=== PATIENT | male | born 1950 | race Caucasian/White ===

== ENCOUNTER 2019-04-06 20:37 | Inpatient (IN) | payer MEDICARE, MEDICAID ==
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
[2019-04-07 01:23] VITALS: BP 150/73
[2019-04-07] MEDS ORDERED: Maalox 30 mL Cup PO PRN (01:23)
[2019-04-07] MEDS ORDERED: Magnesium Hydroxide (MOM) 30 mL UDC PO PRN ×2 (01:23→08:42)
[2019-04-07] MEDS ORDERED: Albuterol Nebulizer 2.5mg/3mL HHN PRN (01:31)
[2019-04-07] MEDS ORDERED: Non-Formulary Item 1 EA (Omeprazole [Omeprazole] 40 MG) PO SCH (07:30)
[2019-04-07] MEDS ORDERED: INSULIN HUMAN REGULAR 100 UNIT/ML VIAL SUBQ SCH (07:30)
[2019-04-07] MEDS ORDERED: PROTEASE PO SCH (08:00)
[2019-04-07] MEDS ORDERED: LIPASE PO SCH (08:00)
[2019-04-07] MEDS ORDERED: AMYLASE PO SCH (08:00)
[2019-04-07] MEDS ORDERED: Non-Formulary Item 1 EA (Sitagliptin Phosphate [Januvia] 100 MG) PO SCH (09:00)
[2019-04-07] MEDS ORDERED: Apixaban 2.5 MG TABLET PO SCH (09:00)
[2019-04-07] MEDS ORDERED: INSULIN DETEMIR 42 UNIT SQ SCH (09:00)
[2019-04-07] MEDS: Lactulose 10 Gm/15 mL 30mL UDC PO SCH ×2 (09:18→17:47)
[2019-04-07] MEDS: Apixaban 2.5 MG TABLET PO SCH ×2 (09:22→17:47)
[2019-04-07] MEDS: Pantoprazole 40 mg EC Tab PO SCH (09:23)
--- NOTE | 2019-04-07 10:37 | Diagnostic Imaging Report ---
CHEST X-RAY: AP view INDICATION: Abnormal EKG COMPARISON: None FINDINGS: There is abnormal left basal density. Chronic interstitial changes are noted. Heart size is borderline prominent. Atherosclerosis is noted. Degenerative changes of spine are noted. Old left rib fractures are noted. No evidence of pneumothorax. IMPRESSION: Abnormal left basal density. This is of uncertain etiology and may be due to elevation left hemidiaphragm. Pleural fluid or other mass lesions cannot be excluded. Recommend follow-up with CT of the chest. Atherosclerotic vascular disease.
[2019-04-07] MEDS: Insulin Glargine 100 units/ml 10ml Vial SUBQ SCH (10:47)
--- NOTE | 2019-04-07 11:43 | History & Physical ---
ADMIT DATE: 04/06/2019 INTERNAL MEDICINE HISTORY AND PHYSICAL CHIEF COMPLAINT: Agitated behavior, aggressive. HISTORY OF PRESENT ILLNESS: This is a 68-year-old male with history of hypertension, alcohol abuse, cirrhosis, diabetes, hypercholesterolemia, CAD, seizure, legally blind, COPD, admitted from nursing facility secondary to ____. The patient was seen in the ER. The patient is agitated refuse labs and treatment and appeared to be clinically stable and brought into a Geropsych unit. PAST MEDICAL HISTORY: As mentioned in history of present illness. PAST SURGICAL HISTORY: Unable to obtain from the patient. ALLERGIES: No known drug allergies. MEDICATIONS: The patient is on nitroglycerin, Lasix, albuterol, amlodipine, Eliquis, atorvastatin, Colace, clonidine, [place], insulin sliding scale, Lantus, Keppra, ____, losartan, magnesium, omeprazole, [place], Januvia, and Aldactone. FAMILY HISTORY: Noncontributory. SOCIAL HISTORY: The patient lives in a senior living. The patient avid smoker and drinker. REVIEW OF SYSTEMS: This is limited as the patient is not very cognitive. We will try to get more information from nursing staff at ____ as well as from Dr. Rollins, who normally follows the patient. PHYSICAL EXAMINATION: VITAL SIGNS: Blood pressure 136/73, respiration 18, pulse 70 and temperature 98.0. GENERAL: Elderly male, appears chronically ill. NECK: Supple. The patient is covered versus upper extremity. LUNGS: Equal breath sounds with few rhonchi. HEART: Regular rate and rhythm with systolic ejection murmur. ABDOMEN: Soft and globular. Positive bowel sounds. EXTREMITIES: Positive excoriation, atrophy as well as lower extremity, there is a ____. LABORATORY DATA: Pending. ASSESSMENT AND PLAN: Alcohol abuse, cirrhosis, hypertension, chronic pain syndrome, varicose veins, diabetes, elevated ammonia, chronic obstructive pulmonary disease, legally blind, coronary artery disease, and seizure. Continue insulin sliding scale. We will review the patient's medications. Continue anticoagulation. We will continue on fall precaution. Continue on diuretics. We will review the patient's labs once it becomes available. We will follow with you, Dr. Wheeler. [facility]# [id number]
[2019-04-07] MEDS: INSULIN LISPRO SLIDING SCALE 100 UNITS/ML UNIT SUBQ SCH ×3 (12:09→22:32)
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
[2019-04-07 14:29] LABS: URINE SOURCE CLEAN C
[2019-04-07 14:39] LABS: URINE BILIRUBIN NEGATIVE (NEGATIVE); URINE BLOOD SMALL (NEGATIVE); URINE GLUCOSE (UA) 100 mg/dL (NEGATIVE); URINE KETONE NEGATIVE (NEGATIVE); URINE LEUKOCYTE ESTERASE NEGATIVE (NEGATIVE); URINE MICROSCOPIC INDICATED? YES; URINE NITRATE NEGATIVE (NEGATIVE); URINE PH 7.5 (4.6 - 8.0); URINE PROTEIN 100 mg/dL (NEGATIVE); URINE UROBILINOGEN 0.2 E.U./dL (0.2 - 1.0)
[2019-04-07 14:41] LABS: URINE CLARITY CLEAR (CLEAR); URINE COLOR YELLOW; URINE EPITHELIAL CELLS NONE SEEN /lpf (FEW); URINE WBC NONE SEEN /hpf (0-5)
[2019-04-07 14:42] LABS: URINE BACTERIA NONE SEEN /hpf (NONE SEEN)
[2019-04-07] MEDS: Hydrocodone/APAP 10 mg/325 mg Tab PO PRN (22:31)
[2019-04-08] MEDS: Pantoprazole 40 mg EC Tab PO SCH (06:41)
[2019-04-08] MEDS: Lactulose 10 Gm/15 mL 30mL UDC PO SCH ×3 (10:00→16:26)
[2019-04-08] MEDS: Apixaban 2.5 MG TABLET PO SCH ×3 (10:03→16:38)
[2019-04-08] MEDS: INSULIN LISPRO SLIDING SCALE 100 UNITS/ML UNIT SUBQ SCH ×4 (10:11→21:16)
[2019-04-08] MEDS: Insulin Glargine 100 units/ml 10ml Vial SUBQ SCH (10:11)
--- NOTE | 2019-04-08 11:31 | Internal Medicine Prog Note ---
Internal Medicine Subjective - Subjective Patient seen and examined:: with staff, chart reviewed Patient is:: awake, verbal, interactive, agitated Per staff patient has:: no adverse event, no episodes of fall, agitated, combative, noncompliant Internal Medicine Objective - Results Recent Labs: Laboratory Last Values POC Glucose 165 MG/DL (70 - 105) H 04/08/19 06:49 Urine Source CLEAN C 04/07/19 13:15 Urine Color YELLOW 04/07/19 13:15 Urine Clarity CLEAR (CLEAR) 04/07/19 13:15 Urine pH 7.5 (4.6 - 8.0) 04/07/19 13:15 Ur Specific [place] 1.010 (1.005-1.030) 04/07/19 13:15 Urine Protein 100 mg/dL (NEGATIVE) H 04/07/19 13:15 Urine Glucose (UA) 100 mg/dL (NEGATIVE) H 04/07/19 13:15 Urine Ketones NEGATIVE mg/dL (NEGATIVE) 04/07/19 13:15 Urine Blood SMALL (NEGATIVE) H 04/07/19 13:15 Urine Nitrate NEGATIVE (NEGATIVE) 04/07/19 13:15 Urine Bilirubin NEGATIVE (NEGATIVE) 04/07/19 13:15 Urine Urobilinogen 0.2 E.U./dL (0.2 - 1.0) 04/07/19 13:15 Ur Leukocyte Esterase NEGATIVE (NEGATIVE) 04/07/19 13:15 Urine RBC 2-5 /hpf (0-5) H 04/07/19 13:15 Urine WBC NONE SEEN /hpf (0-5) 04/07/19 13:15 Ur Epithelial Cells NONE SEEN /lpf (FEW) 04/07/19 13:15 Urine Bacteria NONE SEEN /hpf (NONE SEEN) 04/07/19 13:15 - Physical Exam Vitals and I&O: Vital Signs Temp 97.8 F 04/08/19 08:00 Pulse 72 04/08/19 08:00 Resp 20 04/08/19 08:00 BP 156/60 04/08/19 08:00 Pulse Ox 100 04/08/19 08:00 Intake & Output 04/07/19 04/08/19 04/08/19 18:59 06:59 18:59 Intake Total 480 Balance 480 Intake: Oral 480 Other: # Voids 2 Active Medications: Current Medications Acetaminophen (Tylenol) 650 mg PO Q6HR PRN PRN Reason: Pain or Fever >101 Stop: 06/06/19 08:41 Acetaminophen/Hydrocodone Bitart ([place] 10 Mg/325 Mg) 1 tab PO Q6HR PRN PRN Reason: Pain (Severe) Stop: 06/06/19 01:30 Last Admin: 04/07/19 22:31 Dose: 1 tab Al Hydrox/Mg Hydrox/Simethicone (Maalox) 30 ml PO Q4HR PRN PRN Reason: GI DISTRESS Stop: 06/06/19 01:22 Albuterol Sulfate (Albuterol 2.5mg/3ml Neb Ud) 2.5 mg HHN Q6HR PRN PRN Reason: COPD Stop: 06/06/19 05:59 Amlodipine Besylate (Norvasc) 10 mg PO DAILY [facility] Stop: 06/06/19 08:59 Last Admin: 04/08/19 10:48 Dose: Not Given Lipase/Protease/Amylase (Zenpep 5,000 U) 2 cap PO TIDWM JARAD Stop: 06/06/19 07:59 Last Admin: 04/08/19 10:47 Dose: Not Given Atorvastatin Calcium (Lipitor) 80 mg PO HS JARAD; Protocol Stop: 06/06/19 20:59 Last Admin: 04/07/19 22:31 Dose: 80 mg Bisacodyl (Dulcolax 10 Mg Supp) 10 mg RC DAILY PRN PRN Reason: Constipation Stop: 06/06/19 01:30 Divalproex Sodium (Depakote Er) 250 mg PO Q12HR JARAD; Protocol Stop: 06/06/19 20:59 Last Admin: 04/08/19 10:48 Dose: Not Given Docusate Sodium (Colace) 100 mg PO BID [facility] Stop: 06/06/19 08:59 Last Admin: 04/08/19 10:48 Dose: Not Given Dorzolamide [facility] ([facility] 1 drop EACH EYE 2100 [facility] Stop: 06/06/19 20:59 Furosemide (Lasix) 40 mg PO DAILY [facility] Stop: 06/06/19 08:59 Last Admin: 04/08/19 10:48 Dose: Not Given Insulin Glargine (Lantus Insulin) 42 units SUBQ QAM [facility] Stop: 06/06/19 08:59 Last Admin: 04/08/19 10:11 Dose: Not Given Insulin Human Lispro (Humalog Insulin Sliding Scale) 0 units SUBQ ACHS [facility]; Protocol Stop: 06/06/19 07:29 Last Admin: 04/08/19 10:11 Dose: Not Given Isosorbide Mononitrate (Imdur) 30 mg PO 1700 [facility] Stop: 06/06/19 16:59 Last Admin: 04/07/19 17:45 Dose: Not Given Lactulose (Cephulac) 20 gm PO BID [facility] Stop: 06/06/19 08:59 Last Admin: 04/08/19 10:49 Dose: Not Given Levetiracetam (Keppra) 500 mg PO BID [facility] Stop: 06/06/19 08:59 Last Admin: 04/08/19 10:49 Dose: Not Given Lorazepam (Ativan) 0.5 mg PO Q4HR PRN; Protocol PRN Reason: Agitation Stop: 05/07/19 01:22 Last Admin: 04/08/19 11:01 Dose: 0.5 mg Losartan Potassium (Cozaar) 50 mg PO DAILY [facility] Stop: 06/06/19 08:59 Last Admin: 04/08/19 10:49 Dose: Not Given Magnesium Hydroxide (Milk Of Magnesia) 30 ml PO DAILY PRN PRN Reason: Constipation Stop: 06/06/19 08:41 Nitroglycerin (Nitrostat) 0.4 mg SL Q15MIN PRN PRN Reason: Chest Pain Stop: 04/09/19 09:01 Pantoprazole Sodium (Protonix) 40 mg PO QDAC [facility] Stop: 06/06/19 07:29 Last Admin: 04/08/19 06:41 Dose: 40 mg Simethicone (Mylicon) 80 mg PO TIDWM [facility] Stop: 06/06/19 11:59 Last Admin: 04/08/19 10:07 Dose: Not Given Sitagliptin Phosphate (Januvia) 100 mg PO DAILY [facility] Stop: 06/06/19 08:59 Last Admin: 04/08/19 10:49 Dose: Not Given Spironolactone (Aldactone) 12.5 mg PO DAILY [facility] Stop: 06/06/19 08:59 Last Admin: 04/08/19 10:50 Dose: Not Given Zolpidem Tartrate (Ambien) 5 mg PO HS PRN PRN Reason: Insomnia Stop: 06/06/19 01:22 Last Admin: 04/07/19 22:31 Dose: 5 mg General: alert HEENT: NC/AT, PERRLA, EOMI Neck: Supple, No JVD Lungs: CTAB Cardiovascular: RRR, Normal S1, Normal S2, without murmur Abdomen: soft, non-tender, non-distended, positive bowel sound Extremities: excoriation Internal Medicine Assmt/Plan - Assessment Assessment: ASSESSMENT AND PLAN: Alcohol abuse, cirrhosis, hypertension, chronic pain syndrome, varicose veins, diabetes, elevated ammonia, chronic obstructive pulmonary disease, legally blind, coronary artery disease, and seizure. - Plan Plan: PLAN: Continue insulin sliding scale. We will review the patient's medications. Continue anticoagulation. We will continue on fall precaution. Continue on diuretics. We will review the patient's labs once it becomes available. We will follow with you, Dr. Wheeler.
[2019-04-08] MEDS: Hydrocodone/APAP 10 mg/325 mg Tab PO PRN ×2 (14:31→20:35)
--- NOTE | 2019-04-08 17:05 | Progress Notes ---
DATE: 04/08/2019 Case was discussed with staff of the patient, reviewed records. The patient continues to be nonverbal and staying to himself, unable to participate in meaningful conversation or make safe plan for self-care, unpredictable, impulsive, very poor insight. No side effects with the medication, no sedation, no nausea, no extrapyramidal symptoms. I will continue to work with the patient in group therapy, milieu therapy and adjust the medication as needed. I initiated him on Depakote yesterday. JOB# [id number]
[2019-04-08] MEDS ORDERED: Albuterol Nebulizer 2.5mg/3mL HHN SCH (19:00)
[2019-04-08] MEDS: Albuterol/Ipratropium Neb 3 ML AERS HHN SCH ×2 (19:52→23:10)
[2019-04-08] MEDS: Budesonide 0.5 Mg/2 mL Ud HHN SCH (19:52)
[2019-04-09] MEDS: Albuterol/Ipratropium Neb 3 ML AERS HHN SCH ×7 (02:29→22:51)
[2019-04-09] MEDS: Hydrocodone/APAP 10 mg/325 mg Tab PO PRN ×3 (03:00→21:28)
[2019-04-09] MEDS: INSULIN LISPRO SLIDING SCALE 100 UNITS/ML UNIT SUBQ SCH ×4 (06:33→22:31)
[2019-04-09] MEDS: Budesonide 0.5 Mg/2 mL Ud HHN SCH ×3 (06:35→18:17)
[2019-04-09] MEDS: Pantoprazole 40 mg EC Tab PO SCH (07:01)
[2019-04-09] MEDS: Lactulose 10 Gm/15 mL 30mL UDC PO SCH ×3 (08:47→17:11)
[2019-04-09] MEDS: Insulin Glargine 100 units/ml 10ml Vial SUBQ SCH (09:28)
--- NOTE | 2019-04-09 13:11 | Internal Medicine Prog Note ---
Internal Medicine Subjective - Subjective Patient seen and examined:: with staff, chart reviewed Patient is:: awake, verbal, interactive, agitated Per staff patient has:: no adverse event, no episodes of fall, agitated, combative, noncompliant Internal Medicine Objective - Results Recent Labs: Laboratory Last Values POC Glucose 158 MG/DL (70 - 105) H 04/09/19 11:07 Urine Source CLEAN C 04/07/19 13:15 Urine Color YELLOW 04/07/19 13:15 Urine Clarity CLEAR (CLEAR) 04/07/19 13:15 Urine pH 7.5 (4.6 - 8.0) 04/07/19 13:15 Ur Specific [place] 1.010 (1.005-1.030) 04/07/19 13:15 Urine Protein 100 mg/dL (NEGATIVE) H 04/07/19 13:15 Urine Glucose (UA) 100 mg/dL (NEGATIVE) H 04/07/19 13:15 Urine Ketones NEGATIVE mg/dL (NEGATIVE) 04/07/19 13:15 Urine Blood SMALL (NEGATIVE) H 04/07/19 13:15 Urine Nitrate NEGATIVE (NEGATIVE) 04/07/19 13:15 Urine Bilirubin NEGATIVE (NEGATIVE) 04/07/19 13:15 Urine Urobilinogen 0.2 E.U./dL (0.2 - 1.0) 04/07/19 13:15 Ur Leukocyte Esterase NEGATIVE (NEGATIVE) 04/07/19 13:15 Urine RBC 2-5 /hpf (0-5) H 04/07/19 13:15 Urine WBC NONE SEEN /hpf (0-5) 04/07/19 13:15 Ur Epithelial Cells NONE SEEN /lpf (FEW) 04/07/19 13:15 Urine Bacteria NONE SEEN /hpf (NONE SEEN) 04/07/19 13:15 - Physical Exam Vitals and I&O: Vital Signs Temp 98.0 F 04/08/19 14:00 Pulse 91 04/09/19 10:35 Resp 20 04/09/19 10:35 BP 130/64 04/09/19 09:04 Pulse Ox 98 04/09/19 10:35 Intake & Output 04/08/19 04/09/19 04/09/19 18:59 06:59 18:59 Intake Total 1000 480 Balance 1000 480 Intake: Oral 1000 480 Other: # Voids 2 # Bowel Movements 1 Active Medications: Current Medications Acetaminophen (Tylenol) 650 mg PO Q6HR PRN PRN Reason: Pain or Fever >101 Stop: 06/06/19 08:41 Acetaminophen/Hydrocodone Bitart ([place] 10 Mg/325 Mg) 1 tab PO Q6HR PRN PRN Reason: Pain (Severe) Stop: 06/06/19 01:30 Last Admin: 04/09/19 09:29 Dose: 1 tab Al Hydrox/Mg Hydrox/Simethicone (Maalox) 30 ml PO Q4HR PRN PRN Reason: GI DISTRESS Stop: 06/06/19 01:22 Albuterol/Ipratropium (Duoneb Neb) 3 ml HHN Q4HRT JARAD Stop: 06/07/19 18:59 Last Admin: 04/09/19 10:30 Dose: 3 ml Albuterol/Ipratropium (Duoneb Neb) 3 ml HHN Q4HRT PRN PRN Reason: Wheezing Stop: 06/07/19 16:44 Amlodipine Besylate (Norvasc) 10 mg PO DAILY [facility] Stop: 06/06/19 08:59 Last Admin: 04/09/19 08:48 Dose: 10 mg Lipase/Protease/Amylase (Zenpep 5,000 U) 2 cap PO TIDWM [facility] Stop: 06/06/19 07:59 Last Admin: 04/09/19 08:48 Dose: 2 cap Atorvastatin Calcium (Lipitor) 80 mg PO HS [facility]ARAD; Protocol Stop: 06/06/19 20:59 Last Admin: 04/08/19 20:35 Dose: 80 mg Azithromycin (Zithromax) 250 mg PO DAILY [facility] Stop: 06/11/19 08:59 Bisacodyl (Dulcolax 10 Mg Supp) 10 mg RC DAILY PRN PRN Reason: Constipation Stop: 06/06/19 01:30 Budesonide (Pulmicort) 0.5 mg HHN BIDRT [facility] Stop: 06/07/19 18:59 Last Admin: 04/09/19 07:17 Dose: 0.5 mg Divalproex Sodium (Depakote Er) 250 mg PO Q12HR [facility]; Protocol Stop: 06/06/19 20:59 Last Admin: 04/09/19 08:59 Dose: 250 mg Docusate Sodium (Colace) 100 mg PO BID [facility] Stop: 06/06/19 08:59 Last Admin: 04/09/19 08:48 Dose: 100 mg Dorzolamide HCl ([facility] 1 drop EACH EYE 2100 [facility] Stop: 06/06/19 20:59 Last Admin: 04/08/19 21:15 Dose: Not Given Furosemide (Lasix) 40 mg PO DAILY [facility] Stop: 06/06/19 08:59 Last Admin: 04/09/19 09:04 Dose: 40 mg Insulin Glargine (Lantus Insulin) 42 units SUBQ QAM [facility] Stop: 06/06/19 08:59 Last Admin: 04/09/19 09:28 Dose: 42 units Insulin Human Lispro (Humalog Insulin Sliding Scale) 0 units SUBQ ACHS [facility]; Protocol Stop: 06/06/19 07:29 Last Admin: 04/09/19 11:48 Dose: 3 units Isosorbide Mononitrate (Imdur) 30 mg PO 1700 [facility] Stop: 06/06/19 16:59 Last Admin: 04/08/19 16:26 Dose: 30 mg Lactulose (Cephulac) 20 gm PO BID [facility] Stop: 06/06/19 08:59 Last Admin: 04/09/19 08:47 Dose: 20 gm Levetiracetam (Keppra) 500 mg PO BID [facility] Stop: 06/06/19 08:59 Last Admin: 04/09/19 08:59 Dose: 500 mg Lorazepam (Ativan) 0.5 mg PO Q4HR PRN; Protocol PRN Reason: Agitation Stop: 05/07/19 01:22 Last Admin: 04/09/19 02:45 Dose: 0.5 mg Losartan Potassium (Cozaar) 50 mg PO DAILY [facility] Stop: 06/06/19 08:59 Last Admin: 04/09/19 09:03 Dose: 50 mg Magnesium Hydroxide (Milk Of Magnesia) 30 ml PO DAILY PRN PRN Reason: Constipation Stop: 06/06/19 08:41 Pantoprazole Sodium (Protonix) 40 mg PO QDAC [facility] Stop: 06/06/19 07:29 Last Admin: 04/09/19 07:01 Dose: Not Given Risperidone (Risperdal) 0.25 mg PO BID [facility]; Protocol Stop: 06/08/19 08:59 Last Admin: 04/09/19 09:04 Dose: 0.25 mg Simethicone (Mylicon) 80 mg PO TIDWM [facility] Stop: 06/06/19 11:59 Last Admin: 04/09/19 08:58 Dose: 80 mg Sitagliptin Phosphate (Januvia) 100 mg PO DAILY [facility] Stop: 06/06/19 08:59 Last Admin: 04/09/19 08:57 Dose: 100 mg Spironolactone (Aldactone) 12.5 mg PO DAILY [facility] Stop: 06/06/19 08:59 Last Admin: 04/09/19 09:00 Dose: 12.5 mg Zolpidem Tartrate (Ambien) 5 mg PO HS PRN PRN Reason: Insomnia Stop: 06/06/19 01:22 Last Admin: 04/07/19 22:31 Dose: 5 mg General: alert HEENT: NC/AT, PERRLA, EOMI Neck: Supple, No JVD Lungs: CTAB Cardiovascular: RRR, Normal S1, Normal S2, without murmur Abdomen: soft, non-tender, non-distended, positive bowel sound Extremities: excoriation Internal Medicine Assmt/Plan - Assessment Assessment: ASSESSMENT AND PLAN: Alcohol abuse, cirrhosis, hypertension, chronic pain syndrome, varicose veins, diabetes, elevated ammonia, chronic obstructive pulmonary disease, legally blind, coronary artery disease, and seizure. - Plan Plan: PLAN: Continue insulin sliding scale. We will review the patient's medications. Continue anticoagulation. We will continue on fall precaution. Continue on diuretics. We will review the patient's labs once it becomes available. We will follow with you, Dr. Wheeler.
[2019-04-09] MEDS: Apixaban 2.5 MG TABLET PO SCH ×2 (13:42→17:10)
--- NOTE | 2019-04-09 23:20 | Progress Notes ---
DATE: SUBJECTIVE: Chart reviewed and the patient interviewed. Also discussed the patient's condition with the staff and reviewed records and labs. The patient is still in irritable and angry mood. The patient also is still restless and is still demanding and suspicious and paranoid. The patient also is still angry. On the other hand, the patient is compliant with taking his medications with no side effects. ASSESSMENT: The patient is still agitated and in irritable mood. TREATMENT PLAN: Continue to monitor his behavior and his condition closely. Also, continue Depakote in a dose of 200 mL and 50 mg twice a day and we will add Risperdal 0.25 mg twice a day and we will continue to follow up closely. [facility]# [id number]
[2019-04-10] MEDS: Albuterol/Ipratropium Neb 3 ML AERS HHN SCH ×6 (03:16→23:12)
[2019-04-10] MEDS: Pantoprazole 40 mg EC Tab PO SCH (06:33)
[2019-04-10] MEDS: INSULIN LISPRO SLIDING SCALE 100 UNITS/ML UNIT SUBQ SCH ×4 (06:33→22:04)
[2019-04-10] MEDS: Budesonide 0.5 Mg/2 mL Ud HHN SCH ×2 (07:09→19:15)
[2019-04-10] MEDS: Lactulose 10 Gm/15 mL 30mL UDC PO SCH ×3 (09:01→17:49)
[2019-04-10] MEDS: Apixaban 2.5 MG TABLET PO SCH ×2 (09:04→17:27)
[2019-04-10] MEDS: Hydrocodone/APAP 10 mg/325 mg Tab PO PRN ×2 (09:41→22:19)
--- NOTE | 2019-04-10 12:16 | Internal Medicine Prog Note ---
Internal Medicine Subjective - Subjective Patient seen and examined:: with staff, chart reviewed Patient is:: awake, verbal, interactive, agitated Per staff patient has:: no adverse event, no episodes of fall, agitated, combative, noncompliant Internal Medicine Objective - Results Recent Labs: Laboratory Last Values POC Glucose 73 MG/DL (70 - 105) 04/10/19 06:09 Urine Source CLEAN C 04/07/19 13:15 Urine Color YELLOW 04/07/19 13:15 Urine Clarity CLEAR (CLEAR) 04/07/19 13:15 Urine pH 7.5 (4.6 - 8.0) 04/07/19 13:15 Ur Specific [place] 1.010 (1.005-1.030) 04/07/19 13:15 Urine Protein 100 mg/dL (NEGATIVE) H 04/07/19 13:15 Urine Glucose (UA) 100 mg/dL (NEGATIVE) H 04/07/19 13:15 Urine Ketones NEGATIVE mg/dL (NEGATIVE) 04/07/19 13:15 Urine Blood SMALL (NEGATIVE) H 04/07/19 13:15 Urine Nitrate NEGATIVE (NEGATIVE) 04/07/19 13:15 Urine Bilirubin NEGATIVE (NEGATIVE) 04/07/19 13:15 Urine Urobilinogen 0.2 E.U./dL (0.2 - 1.0) 04/07/19 13:15 Ur Leukocyte Esterase NEGATIVE (NEGATIVE) 04/07/19 13:15 Urine RBC 2-5 /hpf (0-5) H 04/07/19 13:15 Urine WBC NONE SEEN /hpf (0-5) 04/07/19 13:15 Ur Epithelial Cells NONE SEEN /lpf (FEW) 04/07/19 13:15 Urine Bacteria NONE SEEN /hpf (NONE SEEN) 04/07/19 13:15 - Physical Exam Vitals and I&O: Vital Signs Temp 98.3 F 04/09/19 18:10 Pulse 97 04/10/19 10:48 Resp 22 04/10/19 10:48 BP 108/57 04/10/19 09:04 Pulse Ox 98 04/10/19 10:48 Intake & Output 04/09/19 04/10/19 04/10/19 18:59 06:59 18:59 Intake Total 60 Balance 60 Intake: Oral 60 Other: # Voids 1 # Bowel Movements 0 Active Medications: Current Medications Acetaminophen (Tylenol) 650 mg PO Q6HR PRN PRN Reason: Pain or Fever >101 Stop: 06/06/19 08:41 Acetaminophen/Hydrocodone Bitart ([place] 10 Mg/325 Mg) 1 tab PO Q6HR PRN PRN Reason: Pain (Severe) Stop: 06/06/19 01:30 Last Admin: 04/10/19 09:41 Dose: 1 tab Al Hydrox/Mg Hydrox/Simethicone (Maalox) 30 ml PO Q4HR PRN PRN Reason: GI DISTRESS Stop: 06/06/19 01:22 Albuterol/Ipratropium (Duoneb Neb) 3 ml HHN Q4HRT JARAD Stop: 06/07/19 18:59 Last Admin: 04/10/19 10:48 Dose: 3 ml Albuterol/Ipratropium (Duoneb Neb) 3 ml HHN Q4HRT PRN PRN Reason: Wheezing Stop: 06/07/19 16:44 Amlodipine Besylate (Norvasc) 10 mg PO DAILY [facility] Stop: 06/06/19 08:59 Lipase/Protease/Amylase (Zenpep 5,000 U) 2 cap PO TIDWM JARAD Stop: 06/06/19 07:59 Last Admin: 04/10/19 09:05 Dose: 2 cap Atorvastatin Calcium (Lipitor) 80 mg PO HS JARAD; Protocol Stop: 06/06/19 20:59 Last Admin: 04/09/19 21:27 Dose: 80 mg Azithromycin (Zithromax) 250 mg PO DAILY [facility] Stop: 06/11/19 08:59 Bisacodyl (Dulcolax 10 Mg Supp) 10 mg RC DAILY PRN PRN Reason: Constipation Stop: 06/06/19 01:30 Budesonide (Pulmicort) 0.5 mg HHN BIDRT JARAD Stop: 06/07/19 18:59 Last Admin: 04/10/19 07:09 Dose: 0.5 mg Divalproex Sodium (Depakote Er) 250 mg PO Q12HR JARAD; Protocol Stop: 06/06/19 20:59 Last Admin: 04/10/19 09:03 Dose: 250 mg Docusate Sodium (Colace) 100 mg PO BID [facility] Stop: 06/06/19 08:59 Last Admin: 04/10/19 09:03 Dose: 100 mg Dorzolamide HCl (Trusopt 2% Oph Soln) 1 drop EACH EYE 2100 [facility] Stop: 06/06/19 20:59 Last Admin: 04/09/19 21:27 Dose: Not Given Furosemide (Lasix) 40 mg PO DAILY [facility] Stop: 06/06/19 08:59 Last Admin: 04/10/19 09:04 Dose: 40 mg Insulin Glargine (Lantus Insulin) 42 units SUBQ QAM [facility]AD Stop: 06/06/19 08:59 Last Admin: 04/09/19 09:28 Dose: 42 units Insulin Human Lispro (Humalog Insulin Sliding Scale) 0 units SUBQ ACHS [facility]; Protocol Stop: 06/06/19 07:29 Last Admin: 04/10/19 06:33 Dose: Not Given Isosorbide Mononitrate (Imdur) 30 mg PO 1700 [facility] Stop: 06/06/19 16:59 Last Admin: 04/09/19 17:13 Dose: Not Given Lactulose (Cephulac) 20 gm PO BID [facility] Stop: 06/06/19 08:59 Last Admin: 04/10/19 09:01 Dose: 20 gm Levetiracetam (Keppra) 500 mg PO BID [facility] Stop: 06/06/19 08:59 Last Admin: 04/10/19 09:03 Dose: 500 mg Lorazepam (Ativan) 0.5 mg PO Q4HR PRN; Protocol PRN Reason: Agitation Stop: 05/07/19 01:22 Last Admin: 04/09/19 02:45 Dose: 0.5 mg Losartan Potassium (Cozaar) 50 mg PO DAILY [facility] Stop: 06/06/19 08:59 Last Admin: 04/09/19 09:03 Dose: 50 mg Magnesium Hydroxide (Milk Of Magnesia) 30 ml PO DAILY PRN PRN Reason: Constipation Stop: 06/06/19 08:41 Pantoprazole Sodium (Protonix) 40 mg PO QDAC [facility] Stop: 06/06/19 07:29 Last Admin: 04/10/19 06:33 Dose: 40 mg Risperidone (Risperdal) 0.25 mg PO BID [facility]; Protocol Stop: 06/08/19 08:59 Last Admin: 04/10/19 09:01 Dose: 0.25 mg Simethicone (Mylicon) 80 mg PO TIDWM [facility] Stop: 06/06/19 11:59 Last Admin: 04/10/19 09:03 Dose: 80 mg Sitagliptin Phosphate (Januvia) 100 mg PO DAILY [facility] Stop: 06/06/19 08:59 Last Admin: 04/10/19 09:01 Dose: 100 mg Spironolactone (Aldactone) 12.5 mg PO DAILY [facility] Stop: 06/06/19 08:59 Last Admin: 04/09/19 09:00 Dose: 12.5 mg Zolpidem Tartrate (Ambien) 5 mg PO HS PRN PRN Reason: Insomnia Stop: 06/06/19 01:22 Last Admin: 04/07/19 22:31 Dose: 5 mg General: alert HEENT: NC/AT, PERRLA, EOMI Neck: Supple, No JVD Lungs: CTAB Cardiovascular: RRR, Normal S1, Normal S2, without murmur Abdomen: soft, non-tender, non-distended, positive bowel sound Extremities: excoriation Internal Medicine Assmt/Plan - Assessment Assessment: ASSESSMENT AND PLAN: Alcohol abuse, cirrhosis, hypertension, chronic pain syndrome, varicose veins, diabetes, elevated ammonia, chronic obstructive pulmonary disease, legally blind, coronary artery disease, and seizure. - Plan Plan: PLAN: Continue insulin sliding scale. We will review the patient's medications. Continue anticoagulation. We will continue on fall precaution. Continue on diuretics. We will review the patient's labs once it becomes available. We will follow with you, Dr. Wheeler.
[2019-04-10] MEDS: Insulin Glargine 100 units/ml 10ml Vial SUBQ SCH (15:30)
--- NOTE | 2019-04-10 23:26 | Progress Notes ---
DATE: 04/10/2019 SUBJECTIVE: Chart was reviewed and the patient interviewed. Also discussed the patient's condition with the staff and reviewed records and labs. The patient is still easily agitated and is still demanding and resisting care. The patient also is verbally abusive and aggressive to staff, especially when helping him with his ADLs. The patient also is mumbling with words difficult to understand. Otherwise, the patient continued to take Depakote and Risperdal with no side effects. ASSESSMENT: The patient is still agitated and irritable. TREATMENT PLAN: Continue Depakote 250 mg twice a day and Risperdal 0.25 mg twice a day. Also, continue to work on his aggression and agitation and also on behavioral modification. [facility]# [id number]
[2019-04-11] MEDS: Albuterol/Ipratropium Neb 3 ML AERS HHN SCH ×6 (02:03→22:40)
[2019-04-11] MEDS: Albuterol/Ipratropium Neb 3 ML AERS HHN PRN (05:22)
[2019-04-11] MEDS: INSULIN LISPRO SLIDING SCALE 100 UNITS/ML UNIT SUBQ SCH ×4 (06:42→21:22)
[2019-04-11] MEDS: Pantoprazole 40 mg EC Tab PO SCH (06:46)
[2019-04-11] MEDS: Budesonide 0.5 Mg/2 mL Ud HHN SCH ×2 (07:48→18:33)
[2019-04-11] MEDS: Lactulose 10 Gm/15 mL 30mL UDC PO SCH ×3 (08:51→16:34)
[2019-04-11] MEDS: Apixaban 2.5 MG TABLET PO SCH ×3 (08:52→16:34)
[2019-04-11] MEDS: Insulin Glargine 100 units/ml 10ml Vial SUBQ SCH (09:15)
--- NOTE | 2019-04-11 12:36 | Internal Medicine Prog Note ---
Internal Medicine Subjective - Subjective Patient seen and examined:: with staff, chart reviewed Patient is:: awake, verbal, interactive, agitated Per staff patient has:: no adverse event, no episodes of fall, agitated, combative, noncompliant Internal Medicine Objective - Results Recent Labs: Laboratory Last Values POC Glucose 221 MG/DL (70 - 105) H 04/11/19 08:44 Urine Source CLEAN C 04/07/19 13:15 Urine Color YELLOW 04/07/19 13:15 Urine Clarity CLEAR (CLEAR) 04/07/19 13:15 Urine pH 7.5 (4.6 - 8.0) 04/07/19 13:15 Ur Specific [place] 1.010 (1.005-1.030) 04/07/19 13:15 Urine Protein 100 mg/dL (NEGATIVE) H 04/07/19 13:15 Urine Glucose (UA) 100 mg/dL (NEGATIVE) H 04/07/19 13:15 Urine Ketones NEGATIVE mg/dL (NEGATIVE) 04/07/19 13:15 Urine Blood SMALL (NEGATIVE) H 04/07/19 13:15 Urine Nitrate NEGATIVE (NEGATIVE) 04/07/19 13:15 Urine Bilirubin NEGATIVE (NEGATIVE) 04/07/19 13:15 Urine Urobilinogen 0.2 E.U./dL (0.2 - 1.0) 04/07/19 13:15 Ur Leukocyte Esterase NEGATIVE (NEGATIVE) 04/07/19 13:15 Urine RBC 2-5 /hpf (0-5) H 04/07/19 13:15 Urine WBC NONE SEEN /hpf (0-5) 04/07/19 13:15 Ur Epithelial Cells NONE SEEN /lpf (FEW) 04/07/19 13:15 Urine Bacteria NONE SEEN /hpf (NONE SEEN) 04/07/19 13:15 - Physical Exam Vitals and I&O: Vital Signs Temp 98.1 F 04/10/19 16:56 Pulse 96 04/11/19 10:03 Resp 20 04/11/19 10:03 BP 117/59 04/10/19 17:49 Pulse Ox 97 04/11/19 10:03 Intake & Output 04/10/19 04/11/19 04/11/19 18:59 06:59 18:59 Intake Total 240 Balance 240 Intake: Oral 240 Other: # Voids 2 # Bowel Movements 0 Active Medications: Current Medications Acetaminophen (Tylenol) 650 mg PO Q6HR PRN PRN Reason: Pain or Fever >101 Stop: 06/06/19 08:41 Acetaminophen/Hydrocodone Bitart ([place] 10 Mg/325 Mg) 1 tab PO Q6HR PRN PRN Reason: Pain (Severe) Stop: 06/06/19 01:30 Last Admin: 04/10/19 22:19 Dose: 1 tab Al Hydrox/Mg Hydrox/Simethicone (Maalox) 30 ml PO Q4HR PRN PRN Reason: GI DISTRESS Stop: 06/06/19 01:22 Albuterol/Ipratropium (Duoneb Neb) 3 ml HHN Q4HRT JARAD Stop: 06/07/19 18:59 Last Admin: 04/11/19 10:00 Dose: 3 ml Albuterol/Ipratropium (Duoneb Neb) 3 ml HHN Q4HRT PRN PRN Reason: Wheezing Stop: 06/07/19 16:44 Last Admin: 04/11/19 05:22 Dose: 3 ml Amlodipine Besylate (Norvasc) 10 mg PO DAILY [facility] Stop: 06/06/19 08:59 Last Admin: 04/11/19 12:32 Dose: Not Given Lipase/Protease/Amylase (Zenpep 5,000 U) 2 cap PO TIDWM [facility] Stop: 06/06/19 07:59 Last Admin: 04/11/19 12:33 Dose: Not Given Atorvastatin Calcium (Lipitor) 80 mg PO HS [facility]; Protocol Stop: 06/06/19 20:59 Last Admin: 04/10/19 22:01 Dose: 80 mg Azithromycin (Zithromax) 250 mg PO DAILY [facility] Stop: 06/11/19 08:59 Bisacodyl (Dulcolax 10 Mg Supp) 10 mg RC DAILY PRN PRN Reason: Constipation Stop: 06/06/19 01:30 Budesonide (Pulmicort) 0.5 mg HHN BIDRT [facility] Stop: 06/07/19 18:59 Last Admin: 04/11/19 07:48 Dose: Not Given Divalproex Sodium (Depakote Er) 250 mg PO Q12HR [facility]; Protocol Stop: 06/06/19 20:59 Last Admin: 04/11/19 12:32 Dose: Not Given Docusate Sodium (Colace) 100 mg PO BID [facility] Stop: 06/06/19 08:59 Last Admin: 04/11/19 12:32 Dose: Not Given Dorzolamide HCl [facility]) 1 drop EACH EYE 2100 [facility] Stop: 06/06/19 20:59 Last Admin: 04/10/19 22:03 Dose: Not Given Furosemide (Lasix) 40 mg PO DAILY [facility] Stop: 06/06/19 08:59 Last Admin: 04/11/19 12:32 Dose: Not Given Insulin Glargine (Lantus Insulin) 42 units SUBQ QAM [facility] Stop: 06/06/19 08:59 Last Admin: 04/11/19 09:15 Dose: 42 units Insulin Human Lispro (Humalog Insulin Sliding Scale) 0 units SUBQ ACHS [facility]; Protocol Stop: 06/06/19 07:29 Last Admin: 04/11/19 12:28 Dose: Not Given Isosorbide Mononitrate (Imdur) 30 mg PO 1700 [facility] Stop: 06/06/19 16:59 Last Admin: 04/10/19 17:49 Dose: Not Given Lactulose (Cephulac) 20 gm PO BID [facility] Stop: 06/06/19 08:59 Last Admin: 04/11/19 12:32 Dose: Not Given Levetiracetam (Keppra) 500 mg PO BID [facility] Stop: 06/06/19 08:59 Last Admin: 04/11/19 12:31 Dose: Not Given Lorazepam (Ativan) 0.5 mg PO Q4HR PRN; Protocol PRN Reason: Agitation Stop: 05/07/19 01:22 Last Admin: 04/09/19 02:45 Dose: 0.5 mg Losartan Potassium (Cozaar) 50 mg PO DAILY [facility] Stop: 06/06/19 08:59 Last Admin: 04/11/19 12:31 Dose: Not Given Magnesium Hydroxide (Milk Of Magnesia) 30 ml PO DAILY PRN PRN Reason: Constipation Stop: 06/06/19 08:41 Pantoprazole Sodium (Protonix) 40 mg PO QDAC [facility] Stop: 06/06/19 07:29 Last Admin: 04/11/19 06:46 Dose: Not Given Risperidone (Risperdal) 0.5 mg PO BID [facility]; Protocol Stop: 06/10/19 08:59 Last Admin: 04/11/19 12:31 Dose: Not Given Simethicone (Mylicon) 80 mg PO TIDWM [facility] Stop: 06/06/19 11:59 Last Admin: 04/11/19 12:33 Dose: Not Given Sitagliptin Phosphate (Januvia) 100 mg PO DAILY [facility] Stop: 06/06/19 08:59 Last Admin: 04/11/19 12:31 Dose: Not Given Spironolactone (Aldactone) 12.5 mg PO DAILY [facility] Stop: 06/06/19 08:59 Last Admin: 04/11/19 12:31 Dose: Not Given Zolpidem Tartrate (Ambien) 5 mg PO HS PRN PRN Reason: Insomnia Stop: 06/06/19 01:22 Last Admin: 04/07/19 22:31 Dose: 5 mg General: alert HEENT: NC/AT, PERRLA, EOMI Neck: Supple, No JVD Lungs: CTAB Cardiovascular: RRR, Normal S1, Normal S2, without murmur Abdomen: soft, non-tender, non-distended, positive bowel sound Extremities: excoriation Internal Medicine Assmt/Plan - Assessment Assessment: ASSESSMENT AND PLAN: Alcohol abuse, cirrhosis, hypertension, chronic pain syndrome, varicose veins, diabetes, elevated ammonia, chronic obstructive pulmonary disease, legally blind, coronary artery disease, and seizure. - Plan Plan: PLAN: Continue insulin sliding scale. We will review the patient's medications. Continue anticoagulation. We will continue on fall precaution. Continue on diuretics. We will review the patient's labs once it becomes available. We will follow with you, Dr. Wheeler. Nutritional Asmnt/Malnutr-PDOC - Dietary Evaluation Malnutrition Findings (Please click <Entered> for more info): Nutritional Asmnt/Malnutrition Start: 04/11/19 11: 04 Text: Status: Complete Freq: Protocol: Document 04/11/19 11:04 KRANTHI (Rec: 04/11/19 11:08 [email or web address]) Nutritional Asmnt/Malnutrition Patient General Information Nutritional Screening Moderate Risk Diagnosis Psychosis Pertinent Medical Hx/Surgical Hx DM, cirrhosis, HTN, hypercholesterolemia, CAD, seizure, COPD, legally blind. Subjective Information Pt is a 68-year-old male admitted from detention on 04/06 d/t being a danger to himself and others, pt on a 5150. HT: 57 WT: 121 LB (55 kg) BMI: 18.95 (Normal) GI: WNL, distended, ascitic BM: 04/09 x1 I/O: 240/Not Noted Skin: Area of concern Wound: RT forearm has dry skin tears x3. LT forearm has multiple areas of eccymosis, no dressings needed per wound care orders. Zach: 17 Diet Order: Cardiac, NCS, NEFTALI Estimated Energy Needs: ( Geriatric, CBW) 5108-1055 kcals (25-30 kcals/ kg) 55-66G Pro (1.0-1.2 g/kg) 9796-3773 ml (25-30 ml/kg) Pt is eating 80% of meals Per Meal/Nutrition Activity Record . Dietary is currently providing an estimated 1980 kcals and 115 gm Pro, per Pt PO intake this is providing an estimated 1584 kcals and 91gm Pro to meet 100% kcal and 100 +% Pro needs. Current Diet Order/ Nutrition Support Cardiac, NCS, NEFTALI Pertinent Medications Maalox (PRN), Albuterol (PRN), Lipitor, Dulcolax (PRN), Colace, Lasix, Lantus, INS-SS, Cephulac, Keppra, Cozaar, MOM (PRN), Protonix, Mylicon, Aldactone Pertinent Labs 04/09: POC Glucose 131, 88,73, 212, 198, 221 Nutritional Hx/Data Height 1.7 m Height (Calculated Centimeters) 170.2 Current Weight (lbs) 54.885 kg Weight (Calculated Kilograms) 54.9 Weight (Calculated Grams) 45438.7 [place] Body Weight 148lb (67.27kg) % [place] Body Weight 82 Body Mass Index (BMI) 18.9 Weight Status Approriate GI Symptoms GI Symptoms None Last BM 04/09 x1 Skin Integrity/Comment: Skin: Area of concern Wound: RT forearm has dry skin tears x3. LT forearm has multiple areas of eccymosis, no dressings needed per wound care orders. Zach: 17 Current %PO Good (75-100%) Estimated Nutritional Goals BEE in Kcals: Using Current wt Calories/Kcals/Kg 25-30 Kcals Calculated 7647-9987 Protein: Using Current wt Protein g/k.0-1.2 Protein Calculated 55-66 Fluid: ml 7046-3885 ml (25-30 ml/kg) Nutritional Problem 1. Problem Problem altered nutrition related labs Etiology r/t endocrine dysfunction Signs/Symptoms: aeb POC Glucose (04/09) 131, 88 ,73, 212, 198, 221 Malnutrition Related to Morbid Obesity Malnutrition related to morbid obesity No Intervention/Recommendation Comments 1. Continue with Cardiac, NCS, NEFTALI diet as ordered. 2. Continue with antihyperglycemic medications for glucose control per MD order. Expected Outcomes/Goals Expected Outcomes/Goals 1. PO intake to continue to meet 75% of nutritional needs. 2. Monitor PO intake, wt, nutrition related labs, and skin integrity to trend WNL. 3. F/U as low risk in 7 days, 04/18
--- NOTE | 2019-04-11 20:54 | Progress Notes ---
DATE: SUBJECTIVE: Chart was reviewed and the patient interviewed. Also discussed the patient's condition with the staff and reviewed records and labs. The patient remains in angry and irritable mood. The patient also is still suspicious and is still paranoid. The patient also has severe mood swings. Otherwise, the patient has continued to comply with taking his medications and no side effects of medications. ASSESSMENT: The patient is still anxious and is still in irritable mood. TREATMENT PLAN: We will continue to work on his anger and irritability and continue adjusting psychotropic medications and work on behavioral modification. [facility]# [id number]
[2019-04-12] MEDS: Albuterol/Ipratropium Neb 3 ML AERS HHN SCH ×6 (02:57→23:05)
[2019-04-12] MEDS: INSULIN LISPRO SLIDING SCALE 100 UNITS/ML UNIT SUBQ SCH ×4 (06:45→21:57)
[2019-04-12] MEDS: Pantoprazole 40 mg EC Tab PO SCH (06:57)
[2019-04-12] MEDS: Budesonide 0.5 Mg/2 mL Ud HHN SCH ×2 (07:44→19:07)
[2019-04-12] MEDS: Apixaban 2.5 MG TABLET PO SCH ×2 (09:50→16:44)
[2019-04-12] MEDS: Lactulose 10 Gm/15 mL 30mL UDC PO SCH ×2 (09:51→16:45)
[2019-04-12] MEDS: Insulin Glargine 100 units/ml 10ml Vial SUBQ SCH (10:00)
--- NOTE | 2019-04-12 13:08 | Internal Medicine Prog Note ---
Internal Medicine Subjective - Subjective Patient seen and examined:: with staff, chart reviewed, other (per staff not compliant w meds, diet) Patient is:: awake, verbal, interactive, agitated Per staff patient has:: no adverse event, no episodes of fall, agitated, combative, noncompliant Internal Medicine Objective - Results Recent Labs: Laboratory Last Values POC Glucose 221 MG/DL (70 - 105) H 04/11/19 08:44 Urine Source CLEAN C 04/07/19 13:15 Urine Color YELLOW 04/07/19 13:15 Urine Clarity CLEAR (CLEAR) 04/07/19 13:15 Urine pH 7.5 (4.6 - 8.0) 04/07/19 13:15 Ur Specific [place] 1.010 (1.005-1.030) 04/07/19 13:15 Urine Protein 100 mg/dL (NEGATIVE) H 04/07/19 13:15 Urine Glucose (UA) 100 mg/dL (NEGATIVE) H 04/07/19 13:15 Urine Ketones NEGATIVE mg/dL (NEGATIVE) 04/07/19 13:15 Urine Blood SMALL (NEGATIVE) H 04/07/19 13:15 Urine Nitrate NEGATIVE (NEGATIVE) 04/07/19 13:15 Urine Bilirubin NEGATIVE (NEGATIVE) 04/07/19 13:15 Urine Urobilinogen 0.2 E.U./dL (0.2 - 1.0) 04/07/19 13:15 Ur Leukocyte Esterase NEGATIVE (NEGATIVE) 04/07/19 13:15 Urine RBC 2-5 /hpf (0-5) H 04/07/19 13:15 Urine WBC NONE SEEN /hpf (0-5) 04/07/19 13:15 Ur Epithelial Cells NONE SEEN /lpf (FEW) 04/07/19 13:15 Urine Bacteria NONE SEEN /hpf (NONE SEEN) 04/07/19 13:15 - Physical Exam Vitals and I&O: Vital Signs Temp 98.1 F 04/10/19 16:56 Pulse 103 04/12/19 10:00 Resp 22 04/12/19 11:32 BP 150/88 04/12/19 10:00 Pulse Ox 98 04/12/19 07:45 Intake & Output 04/11/19 04/12/19 04/12/19 18:59 06:59 18:59 Intake Total 0 Balance 0 Intake: Oral 0 Other: # Voids 2 # Bowel Movements 1 Active Medications: Current Medications Acetaminophen (Tylenol) 650 mg PO Q6HR PRN PRN Reason: Pain or Fever >101 Stop: 06/06/19 08:41 Acetaminophen/Hydrocodone Bitart ([place] 10 Mg/325 Mg) 1 tab PO Q6HR PRN PRN Reason: Pain (Severe) Stop: 06/06/19 01:30 Last Admin: 04/10/19 22:19 Dose: 1 tab Al Hydrox/Mg Hydrox/Simethicone (Maalox) 30 ml PO Q4HR PRN PRN Reason: GI DISTRESS Stop: 06/06/19 01:22 Last Admin: 04/11/19 21:08 Dose: 30 ml Albuterol/Ipratropium (Duoneb Neb) 3 ml HHN Q4HRT [facility] Stop: 06/07/19 18:59 Last Admin: 04/12/19 11:28 Dose: Not Given Albuterol/Ipratropium (Duoneb Neb) 3 ml HHN Q4HRT PRN PRN Reason: Wheezing Stop: 06/07/19 16:44 Last Admin: 04/11/19 05:22 Dose: 3 ml Amlodipine Besylate (Norvasc) 10 mg PO DAILY [facility] Stop: 06/06/19 08:59 Last Admin: 04/12/19 10:00 Dose: Not Given Lipase/Protease/Amylase (Zenpep 5,000 U) 2 cap PO TIDWM [facility] Stop: 06/06/19 07:59 Last Admin: 04/12/19 12:34 Dose: Not Given Atorvastatin Calcium (Lipitor) 80 mg PO HS [facility]; Protocol Stop: 06/06/19 20:59 Last Admin: 04/11/19 21:07 Dose: 80 mg Azithromycin (Zithromax) 250 mg PO DAILY [facility] Stop: 06/11/19 08:59 Last Admin: 04/12/19 09:49 Dose: Not Given Bisacodyl (Dulcolax 10 Mg Supp) 10 mg RC DAILY PRN PRN Reason: Constipation Stop: 06/06/19 01:30 Budesonide (Pulmicort) 0.5 mg HHN BIDRT [facility] Stop: 06/07/19 18:59 Last Admin: 04/12/19 07:44 Dose: 0.5 mg Divalproex Sodium (Depakote Er) 250 mg PO Q12HR [facility]; Protocol Stop: 06/06/19 20:59 Last Admin: 04/12/19 09:50 Dose: Not Given Docusate Sodium (Colace) 100 mg PO BID [facility] Stop: 06/06/19 08:59 Last Admin: 04/12/19 09:48 Dose: Not Given Dorzolamide HCl (Trusopt 2% Ophth Soln) 1 drop EACH EYE 2100 [facility] Stop: 06/06/19 20:59 Last Admin: 04/11/19 21:15 Dose: Not Given Furosemide (Lasix) 40 mg PO DAILY [facility] Stop: 06/06/19 08:59 Last Admin: 04/12/19 10:00 Dose: Not Given Insulin Glargine (Lantus Insulin) 42 units SUBQ QAM [facility] Stop: 06/06/19 08:59 Last Admin: 04/12/19 10:00 Dose: Not Given Insulin Human Lispro (Humalog Insulin Sliding Scale) 0 units SUBQ ACHS [facility]; Protocol Stop: 06/06/19 07:29 Last Admin: 04/12/19 11:50 Dose: Not Given Isosorbide Mononitrate (Imdur) 30 mg PO 1700 [facility] Stop: 06/06/19 16:59 Last Admin: 04/11/19 16:34 Dose: Not Given Lactulose (Cephulac) 20 gm PO BID [facility] Stop: 06/06/19 08:59 Last Admin: 04/12/19 09:51 Dose: Not Given Levetiracetam (Keppra) 500 mg PO BID [facility] Stop: 06/06/19 08:59 Last Admin: 04/12/19 09:51 Dose: Not Given Lorazepam (Ativan) 0.5 mg PO Q4HR PRN; Protocol PRN Reason: Agitation Stop: 05/07/19 01:22 Last Admin: 04/09/19 02:45 Dose: 0.5 mg Losartan Potassium (Cozaar) 50 mg PO DAILY [facility] Stop: 06/06/19 08:59 Last Admin: 04/12/19 10:00 Dose: Not Given Magnesium Hydroxide (Milk Of Magnesia) 30 ml PO DAILY PRN PRN Reason: Constipation Stop: 06/06/19 08:41 Pantoprazole Sodium (Protonix) 40 mg PO QDAC [facility] Stop: 06/06/19 07:29 Last Admin: 04/12/19 06:57 Dose: Not Given Risperidone (Risperdal) 0.5 mg PO BID [facility]; Protocol Stop: 06/10/19 08:59 Last Admin: 04/12/19 09:48 Dose: Not Given Simethicone (Mylicon) 80 mg PO TIDWM [facility] Stop: 06/06/19 11:59 Last Admin: 04/12/19 12:34 Dose: Not Given Sitagliptin Phosphate (Januvia) 100 mg PO DAILY [facility] Stop: 06/06/19 08:59 Last Admin: 04/12/19 09:50 Dose: Not Given Spironolactone (Aldactone) 12.5 mg PO DAILY [facility] Stop: 06/06/19 08:59 Last Admin: 04/12/19 10:00 Dose: Not Given Zolpidem Tartrate (Ambien) 5 mg PO HS PRN PRN Reason: Insomnia Stop: 06/06/19 01:22 Last Admin: 04/11/19 21:08 Dose: 5 mg General: alert HEENT: NC/AT, PERRLA, EOMI Neck: Supple, No JVD Lungs: CTAB Cardiovascular: RRR, Normal S1, Normal S2, without murmur Abdomen: soft, non-tender, non-distended, positive bowel sound Extremities: excoriation Internal Medicine Assmt/Plan - Assessment Assessment: ASSESSMENT AND PLAN: Alcohol abuse, cirrhosis, hypertension, chronic pain syndrome, varicose veins, diabetes, elevated ammonia, chronic obstructive pulmonary disease, legally blind, coronary artery disease, and seizure. noncompliance - Plan Plan: PLAN: Continue insulin sliding scale. We will review the patient's medications. Continue anticoagulation. We will continue on fall precaution. Continue on diuretics. We will review the patient's labs once it becomes available. We will follow with you, Dr. Wheeler. check labs ate 60 percent, meds adjusted Nutritional Asmnt/Malnutr-PDOC - Dietary Evaluation Malnutrition Findings (Please click <Entered> for more info): Nutritional Asmnt/Malnutrition Start: 04/11/19 11: 04 Text: Status: Complete Freq: Protocol: Document 04/11/19 11:04 KRANTHI (Rec: 04/11/19 11:08 [email or web address] [email or web address]) Nutritional Asmnt/Malnutrition Patient General Information Nutritional Screening Moderate Risk Diagnosis Psychosis Pertinent Medical Hx/Surgical Hx DM, cirrhosis, HTN, hypercholesterolemia, CAD, seizure, COPD, legally blind. Subjective Information Pt is a 68-year-old male admitted from shelter on 04/06 d/t being a danger to himself and others, pt on a 5150. HT: 57 WT: 121 LB (55 kg) BMI: 18.95 (Normal) GI: WNL, distended, ascitic BM: 04/09 x1 I/O: 240/Not Noted Skin: Area of concern Wound: RT forearm has dry skin tears x3. LT forearm has multiple areas of eccymosis, no dressings needed per wound care orders. Zach: 17 Diet Order: Cardiac, NCS, NEFTALI Estimated Energy Needs: ( Geriatric, CBW) 4541-8391 kcals (25-30 kcals/ kg) 55-66G Pro (1.0-1.2 g/kg) 0789-0962 ml (25-30 ml/kg) Pt is eating 80% of meals Per Meal/Nutrition Activity Record . Dietary is currently providing an estimated 1980 kcals and 115 gm Pro, per Pt PO intake this is providing an estimated 1584 kcals and 91gm Pro to meet 100% kcal and 100 +% Pro needs. Current Diet Order/ Nutrition Support Cardiac, NCS, NEFTALI Pertinent Medications Maalox (PRN), Albuterol (PRN), Lipitor, Dulcolax (PRN), Colace, Lasix, Lantus, INS-SS, Cephulac, Keppra, Cozaar, MOM (PRN), Protonix, Mylicon, Aldactone Pertinent Labs 04/09: POC Glucose 131, 88,73, 212, 198, 221 Nutritional Hx/Data Height 1.7 m Height (Calculated Centimeters) 170.2 Current Weight (lbs) 54.885 kg Weight (Calculated Kilograms) 54.9 Weight (Calculated Grams) 28953.7 [place] Body Weight 148lb (67.27kg) % [place] Body Weight 82 Body Mass Index (BMI) 18.9 Weight Status Approriate GI Symptoms GI Symptoms None Last BM 04/09 x1 Skin Integrity/Comment: Skin: Area of concern Wound: RT forearm has dry skin tears x3. LT forearm has multiple areas of eccymosis, no dressings needed per wound care orders. Zach: 17 Current %PO Good (75-100%) Estimated Nutritional Goals BEE in Kcals: Using Current wt Calories/Kcals/Kg 25-30 Kcals Calculated 2689-6765 Protein: Using Current wt Protein g/k.0-1.2 Protein Calculated 55-66 Fluid: ml 2395-7612 ml (25-30 ml/kg) Nutritional Problem 1. Problem Problem altered nutrition related labs Etiology r/t endocrine dysfunction Signs/Symptoms: aeb POC Glucose (04/09) 131, 88 ,73, 212, 198, 221 Malnutrition Related to Morbid Obesity Malnutrition related to morbid obesity No Intervention/Recommendation Comments 1. Continue with Cardiac, NCS, NEFTALI diet as ordered. 2. Continue with antihyperglycemic medications for glucose control per MD order. Expected Outcomes/Goals Expected Outcomes/Goals 1. PO intake to continue to meet 75% of nutritional needs. 2. Monitor PO intake, wt, nutrition related labs, and skin integrity to trend WNL. 3. F/U as low risk in 7 days, 04/18
--- NOTE | 2019-04-12 14:28 | Diagnostic Imaging Report ---
Portable chest x-ray HISTORY: Shortness of breath The heart is enlarged. Atherosclerotic calcification seen in the aorta. Accentuation of interstitial markings in the left lower lobe related to the volume loss. No acute pulmonary processes. IMPRESSION: 1. No acute abnormalities 2. Elevation of the left hemidiaphragm with findings consistent with chronic changes in the left lower lobe. 3. Generous heart size with atherosclerotic vascular changes
[2019-04-12] MEDS: Hydrocodone/APAP 10 mg/325 mg Tab PO PRN (23:56)
[2019-04-13] MEDS: Albuterol/Ipratropium Neb 3 ML AERS HHN SCH ×6 (03:06→22:34)
[2019-04-13] MEDS: INSULIN LISPRO SLIDING SCALE 100 UNITS/ML UNIT SUBQ SCH ×4 (06:45→20:30)
[2019-04-13] MEDS: Pantoprazole 40 mg EC Tab PO SCH (06:48)
[2019-04-13] MEDS: Budesonide 0.5 Mg/2 mL Ud HHN SCH ×2 (07:15→18:58)
[2019-04-13] MEDS: Lactulose 10 Gm/15 mL 30mL UDC PO SCH ×3 (09:00→17:23)
[2019-04-13] MEDS: Apixaban 2.5 MG TABLET PO SCH ×2 (09:00→16:36)
--- NOTE | 2019-04-13 09:04 | Diagnostic Imaging Report ---
Exam: Portable chest x-ray HISTORY: CVA Findings: Portable initially chest at 1955 reviewed compatible prior study of the same day earlier. There is evidence for elevation left hemidiaphragm. Mild atelectasis versus scarring in left base. Atelectasis is noted right base. Mediastinal structures midline, the heart is not enlarged aortic arch calcified. IMPRESSION: Unchanged compared to prior study of 04/12/2019 Elevated left hemidiaphragm with left basilar atelectasis.
[2019-04-13] MEDS: Insulin Glargine 100 units/ml 10ml Vial SUBQ SCH (09:35)
--- NOTE | 2019-04-13 12:45 | Internal Medicine Prog Note ---
Internal Medicine Subjective - Subjective Patient seen and examined:: with staff, chart reviewed, other (refused lab draw yesterday) Patient is:: awake, verbal, interactive, agitated Per staff patient has:: no adverse event, no episodes of fall, agitated, combative, noncompliant Internal Medicine Objective - Results Recent Labs: Laboratory Last Values POC Glucose 221 MG/DL (70 - 105) H 04/11/19 08:44 Urine Source CLEAN C 04/07/19 13:15 Urine Color YELLOW 04/07/19 13:15 Urine Clarity CLEAR (CLEAR) 04/07/19 13:15 Urine pH 7.5 (4.6 - 8.0) 04/07/19 13:15 Ur Specific [place] 1.010 (1.005-1.030) 04/07/19 13:15 Urine Protein 100 mg/dL (NEGATIVE) H 04/07/19 13:15 Urine Glucose (UA) 100 mg/dL (NEGATIVE) H 04/07/19 13:15 Urine Ketones NEGATIVE mg/dL (NEGATIVE) 04/07/19 13:15 Urine Blood SMALL (NEGATIVE) H 04/07/19 13:15 Urine Nitrate NEGATIVE (NEGATIVE) 04/07/19 13:15 Urine Bilirubin NEGATIVE (NEGATIVE) 04/07/19 13:15 Urine Urobilinogen 0.2 E.U./dL (0.2 - 1.0) 04/07/19 13:15 Ur Leukocyte Esterase NEGATIVE (NEGATIVE) 04/07/19 13:15 Urine RBC 2-5 /hpf (0-5) H 04/07/19 13:15 Urine WBC NONE SEEN /hpf (0-5) 04/07/19 13:15 Ur Epithelial Cells NONE SEEN /lpf (FEW) 04/07/19 13:15 Urine Bacteria NONE SEEN /hpf (NONE SEEN) 04/07/19 13:15 - Physical Exam Vitals and I&O: Vital Signs Temp 97.2 F 04/12/19 20:00 Pulse 93 04/13/19 11:57 Resp 20 04/13/19 11:57 BP 138/63 04/12/19 20:00 Pulse Ox 97 04/13/19 11:57 Intake & Output 04/12/19 04/13/19 04/13/19 18:59 06:59 18:59 Intake Total 240 120 Output Total 100 Balance 140 120 Intake: Oral 240 120 Output: Urine 100 Other: # Voids 2 3 # Bowel Movements 1 Active Medications: Current Medications Acetaminophen (Tylenol) 650 mg PO Q6HR PRN PRN Reason: Pain or Fever >101 Stop: 06/06/19 08:41 Acetaminophen/Hydrocodone Bitart ([place] 10 Mg/325 Mg) 1 tab PO Q6HR PRN PRN Reason: Pain (Severe) Stop: 06/06/19 01:30 Last Admin: 04/12/19 23:56 Dose: 1 tab Al Hydrox/Mg Hydrox/Simethicone (Maalox) 30 ml PO Q4HR PRN PRN Reason: GI DISTRESS Stop: 06/06/19 01:22 Last Admin: 04/11/19 21:08 Dose: 30 ml Albuterol/Ipratropium (Duoneb Neb) 3 ml HHN Q4HRT [facility] Stop: 06/07/19 18:59 Last Admin: 04/13/19 11:59 Dose: Not Given Albuterol/Ipratropium (Duoneb Neb) 3 ml HHN Q4HRT PRN PRN Reason: Wheezing Stop: 06/07/19 16:44 Last Admin: 04/11/19 05:22 Dose: 3 ml Amlodipine Besylate (Norvasc) 10 mg PO DAILY [facility] Stop: 06/06/19 08:59 Last Admin: 04/12/19 10:00 Dose: Not Given Lipase/Protease/Amylase (Zenpep 5,000 U) 2 cap PO TIDWM [facility] Stop: 06/06/19 07:59 Last Admin: 04/13/19 08:00 Dose: 2 cap Bisacodyl (Dulcolax 10 Mg Supp) 10 mg RC DAILY PRN PRN Reason: Constipation Stop: 06/06/19 01:30 Budesonide (Pulmicort) 0.5 mg HHN BIDRT [facility] Stop: 06/07/19 18:59 Last Admin: 04/13/19 07:15 Dose: Not Given Divalproex Sodium (Depakote Er) 250 mg PO Q12HR [facility]; Protocol Stop: 06/06/19 20:59 Last Admin: 04/13/19 09:27 Dose: 250 mg Docusate Sodium (Colace) 100 mg PO BID [facility] Stop: 06/06/19 08:59 Last Admin: 04/13/19 09:27 Dose: 100 mg [facility] drop E[facility]YE 2100 [facility] Stop: 06/06/19 20:59 Last Admin: 04/12/19 21:57 Dose: Not Given Furosemide (Lasix) 40 mg PO DAILY [facility] Stop: 06/06/19 08:59 Last Admin: 04/12/19 10:00 Dose: Not Given Insulin Glargine (Lantus Insulin) 30 units SUBQ QAM [facility] Stop: 06/12/19 08:59 Last Admin: 04/13/19 09:35 Dose: 30 units Insulin Human Lispro (Humalog Insulin Sliding Scale) 0 units SUBQ ACHS [facility]; Protocol Stop: 06/06/19 07:29 Last Admin: 04/13/19 06:45 Dose: 3 units Isosorbide Mononitrate (Imdur) 30 mg PO 1700 [facility] Stop: 06/06/19 16:59 Last Admin: 04/12/19 16:45 Dose: Not Given Lactulose (Cephulac) 20 gm PO BID [facility] Stop: 06/06/19 08:59 Last Admin: 04/12/19 16:45 Dose: Not Given Levetiracetam (Keppra) 500 mg PO BID [facility] Stop: 06/06/19 08:59 Last Admin: 04/13/19 09:27 Dose: 500 mg Lorazepam (Ativan) 0.5 mg PO Q4HR PRN; Protocol PRN Reason: Agitation Stop: 05/07/19 01:22 Last Admin: 04/12/19 21:56 Dose: 0.5 mg Losartan Potassium (Cozaar) 50 mg PO DAILY [facility] Stop: 06/06/19 08:59 Last Admin: 04/12/19 10:00 Dose: Not Given Magnesium Hydroxide (Milk Of Magnesia) 30 ml PO DAILY PRN PRN Reason: Constipation Stop: 06/06/19 08:41 Pantoprazole Sodium (Protonix) 40 mg PO QDAC [facility] Stop: 06/06/19 07:29 Last Admin: 04/13/19 06:48 Dose: 40 mg Risperidone (Risperdal) 0.5 mg PO BID [facility]; Protocol Stop: 06/10/19 08:59 Last Admin: 04/13/19 09:27 Dose: 0.5 mg Simethicone (Mylicon) 80 mg PO TIDWM [facility] Stop: 06/06/19 11:59 Last Admin: 04/13/19 09:24 Dose: 80 mg Sitagliptin Phosphate (Januvia) 100 mg PO DAILY [facility] Stop: 06/06/19 08:59 Last Admin: 04/13/19 09:24 Dose: 100 mg Spironolactone (Aldactone) 12.5 mg PO DAILY [facility] Stop: 06/06/19 08:59 Last Admin: 04/12/19 10:00 Dose: Not Given Zolpidem Tartrate (Ambien) 5 mg PO HS PRN PRN Reason: Insomnia Stop: 06/06/19 01:22 Last Admin: 04/11/19 21:08 Dose: 5 mg General: alert HEENT: NC/AT, PERRLA, EOMI Neck: Supple, No JVD Lungs: CTAB Cardiovascular: RRR, Normal S1, Normal S2, without murmur Abdomen: soft, non-tender, non-distended, positive bowel sound Extremities: excoriation Internal Medicine Assmt/Plan - Assessment Assessment: ASSESSMENT AND PLAN: Alcohol abuse, cirrhosis, hypertension, chronic pain syndrome, varicose veins, diabetes, elevated ammonia, chronic obstructive pulmonary disease, legally blind, coronary artery disease, and seizure. noncompliance - Plan Plan: PLAN: Continue insulin sliding scale. We will review the patient's medications. Continue anticoagulation. We will continue on fall precaution. Continue on diuretics. We will review the patient's labs once it becomes available. We will follow with you, Dr. Wheeler. check labs ate 60 percent, meds adjusted refused labs Nutritional Asmnt/Malnutr-PDOC - Dietary Evaluation Malnutrition Findings (Please click <Entered> for more info): Nutritional Asmnt/Malnutrition Start: 04/11/19 11: 04 Text: Status: Complete Freq: Protocol: Document 04/11/19 11:04 KRANTHI (Rec: 04/11/19 11:08 KRANTHI [email or web address]) Nutritional Asmnt/Malnutrition Patient General Information Nutritional Screening Moderate Risk Diagnosis Psychosis Pertinent Medical Hx/Surgical Hx DM, cirrhosis, HTN, hypercholesterolemia, CAD, seizure, COPD, legally blind. Subjective Information Pt is a 68-year-old male admitted from long-term on 04/06 d/t being a danger to himself and others, pt on a 5150. HT: 57 WT: 121 LB (55 kg) BMI: 18.95 (Normal) GI: WNL, distended, ascitic BM: 04/09 x1 I/O: 240/Not Noted Skin: Area of concern Wound: RT forearm has dry skin tears x3. LT forearm has multiple areas of eccymosis, no dressings needed per wound care orders. Zach: 17 Diet Order: Cardiac, NCS, NEFTALI Estimated Energy Needs: ( Geriatric, CBW) 1909-3963 kcals (25-30 kcals/ kg) 55-66G Pro (1.0-1.2 g/kg) 8567-4058 ml (25-30 ml/kg) Pt is eating 80% of meals Per Meal/Nutrition Activity Record . Dietary is currently providing an estimated 1980 kcals and 115 gm Pro, per Pt PO intake this is providing an estimated 1584 kcals and 91gm Pro to meet 100% kcal and 100 +% Pro needs. Current Diet Order/ Nutrition Support Cardiac, NCS, NEFTALI Pertinent Medications Maalox (PRN), Albuterol (PRN), Lipitor, Dulcolax (PRN), Colace, Lasix, Lantus, INS-SS, Cephulac, Keppra, Cozaar, MOM (PRN), Protonix, Mylicon, Aldactone Pertinent Labs 04/09: POC Glucose 131, 88,73, 212, 198, 221 Nutritional Hx/Data Height 1.7 m Height (Calculated Centimeters) 170.2 Current Weight (lbs) 54.885 kg Weight (Calculated Kilograms) 54.9 Weight (Calculated Grams) 88875.7 [place] Body Weight 148lb (67.27kg) % [place] Body Weight 82 Body Mass Index (BMI) 18.9 Weight Status Approriate GI Symptoms GI Symptoms None Last BM 04/09 x1 Skin Integrity/Comment: Skin: Area of concern Wound: RT forearm has dry skin tears x3. LT forearm has multiple areas of eccymosis, no dressings needed per wound care orders. Zach: 17 Current %PO Good (75-100%) Estimated Nutritional Goals BEE in Kcals: Using Current wt Calories/Kcals/Kg 25-30 Kcals Calculated 7572-8003 Protein: Using Current wt Protein g/k.0-1.2 Protein Calculated 55-66 Fluid: ml 3585-3628 ml (25-30 ml/kg) Nutritional Problem 1. Problem Problem altered nutrition related labs Etiology r/t endocrine dysfunction Signs/Symptoms: aeb POC Glucose (04/09) 131, 88 ,73, 212, 198, 221 Malnutrition Related to Morbid Obesity Malnutrition related to morbid obesity No Intervention/Recommendation Comments 1. Continue with Cardiac, NCS, NEFTALI diet as ordered. 2. Continue with antihyperglycemic medications for glucose control per MD order. Expected Outcomes/Goals Expected Outcomes/Goals 1. PO intake to continue to meet 75% of nutritional needs. 2. Monitor PO intake, wt, nutrition related labs, and skin integrity to trend WNL. 3. F/U as low risk in 7 days, 04/18
[2019-04-13] MEDS: Hydrocodone/APAP 10 mg/325 mg Tab PO PRN (14:30)
--- NOTE | 2019-04-13 22:26 | Progress Notes ---
DATE: SUBJECTIVE: Chart was reviewed and the patient interviewed. Also discussed the patient's condition with the staff and reviewed records and labs. The patient is still a bit anxious and in irritable mood. The patient also is still suspicious and is still paranoid and gets angry and agitated easily. The patient although compliant with taking his medications, yet he refused to get his blood drawn this morning in spite of explaining to him the importance of getting his blood drawn. He is still resisting care sometimes. Otherwise, the patient is compliant with taking his medications with no side effects of medications. ASSESSMENT: The patient is still delusional and paranoid and needs close monitoring. TREATMENT PLAN: Continue to monitor his behavior and his condition closely. Also, continue adjusting psychotropic medications and work on behavioral modification. Also, working on placement issue and discharge plans. [facility]# [id number]
--- NOTE | 2019-04-14 01:34 | Progress Notes ---
DATE: 04/12/2019 SUBJECTIVE: Chart reviewed and the patient interviewed. Also discussed the patient's condition with the staff and reviewed records and labs. The patient is still anxious and is still severely paranoid. The patient also is in irritable and angry mood. The patient also is resisting care and is still ____. He also still seems to be suspicious and seems to be paranoid. Otherwise, the patient is cooperative and compliant with taking his medications and no side effects of Risperdal. ASSESSMENT: The patient is still psychotic and agitated and needs close monitoring. TREATMENT PLAN: Continue to monitor his behavior and his condition closely. Also, continue adjusting psychotropic medications and follow up with discharge plans. [facility]# [id number]
[2019-04-14] MEDS: Albuterol/Ipratropium Neb 3 ML AERS HHN SCH ×6 (02:37→22:42)
[2019-04-14] MEDS: Albuterol/Ipratropium Neb 3 ML AERS HHN PRN (04:14)
[2019-04-14] MEDS: INSULIN LISPRO SLIDING SCALE 100 UNITS/ML UNIT SUBQ SCH ×3 (06:32→17:02)
[2019-04-14] MEDS: Pantoprazole 40 mg EC Tab PO SCH (06:42)
[2019-04-14] MEDS: Budesonide 0.5 Mg/2 mL Ud HHN SCH ×2 (06:52→19:41)
[2019-04-14] MEDS: Apixaban 2.5 MG TABLET PO SCH ×2 (08:47→17:03)
[2019-04-14] MEDS: Insulin Glargine 100 units/ml 10ml Vial SUBQ SCH (08:56)
[2019-04-14] MEDS: Lactulose 10 Gm/15 mL 30mL UDC PO SCH ×2 (09:13→17:03)
--- NOTE | 2019-04-14 12:04 | Internal Medicine Prog Note ---
Internal Medicine Subjective - Subjective Patient seen and examined:: with staff, chart reviewed Patient is:: awake, verbal, interactive, agitated Per staff patient has:: no adverse event, no episodes of fall, agitated, combative, noncompliant Internal Medicine Objective - Results Recent Labs: Laboratory Last Values POC Glucose 221 MG/DL (70 - 105) H 04/11/19 08:44 Urine Source CLEAN C 04/07/19 13:15 Urine Color YELLOW 04/07/19 13:15 Urine Clarity CLEAR (CLEAR) 04/07/19 13:15 Urine pH 7.5 (4.6 - 8.0) 04/07/19 13:15 Ur Specific [place] 1.010 (1.005-1.030) 04/07/19 13:15 Urine Protein 100 mg/dL (NEGATIVE) H 04/07/19 13:15 Urine Glucose (UA) 100 mg/dL (NEGATIVE) H 04/07/19 13:15 Urine Ketones NEGATIVE mg/dL (NEGATIVE) 04/07/19 13:15 Urine Blood SMALL (NEGATIVE) H 04/07/19 13:15 Urine Nitrate NEGATIVE (NEGATIVE) 04/07/19 13:15 Urine Bilirubin NEGATIVE (NEGATIVE) 04/07/19 13:15 Urine Urobilinogen 0.2 E.U./dL (0.2 - 1.0) 04/07/19 13:15 Ur Leukocyte Esterase NEGATIVE (NEGATIVE) 04/07/19 13:15 Urine RBC 2-5 /hpf (0-5) H 04/07/19 13:15 Urine WBC NONE SEEN /hpf (0-5) 04/07/19 13:15 Ur Epithelial Cells NONE SEEN /lpf (FEW) 04/07/19 13:15 Urine Bacteria NONE SEEN /hpf (NONE SEEN) 04/07/19 13:15 - Physical Exam Vitals and I&O: Vital Signs Temp 98.9 F 04/14/19 06:44 Pulse 89 04/14/19 11:06 Resp 22 04/14/19 11:06 BP 105/57 04/14/19 08:49 Pulse Ox 99 04/14/19 11:06 Intake & Output 04/13/19 04/14/19 04/14/19 18:59 06:59 18:59 Intake Total 1200 120 Balance 1200 120 Intake: Oral 1200 120 Other: # Voids 3 # Bowel Movements 1 0 Active Medications: Current Medications Acetaminophen (Tylenol) 650 mg PO Q6HR PRN PRN Reason: Pain or Fever >101 Stop: 06/06/19 08:41 Acetaminophen/Hydrocodone Bitart ([place] 10 Mg/325 Mg) 1 tab PO Q6HR PRN PRN Reason: Pain (Severe) Stop: 06/06/19 01:30 Last Admin: 04/13/19 14:30 Dose: 1 tab Al Hydrox/Mg Hydrox/Simethicone (Maalox) 30 ml PO Q4HR PRN PRN Reason: GI DISTRESS Stop: 06/06/19 01:22 Last Admin: 04/11/19 21:08 Dose: 30 ml Albuterol/Ipratropium (Duoneb Neb) 3 ml HHN Q4HRT [facility] Stop: 06/07/19 18:59 Last Admin: 04/14/19 11:06 Dose: 3 ml Albuterol/Ipratropium (Duoneb Neb) 3 ml HHN Q4HRT PRN PRN Reason: Wheezing Stop: 06/07/19 16:44 Last Admin: 04/14/19 04:14 Dose: 3 ml Amlodipine Besylate (Norvasc) 10 mg PO DAILY [facility] Stop: 06/06/19 08:59 Last Admin: 04/14/19 08:44 Dose: Not Given Lipase/Protease/Amylase (Zenpep 5,000 U) 2 cap PO TIDWM [facility] Stop: 06/06/19 07:59 Last Admin: 04/14/19 08:43 Dose: 2 cap Bisacodyl (Dulcolax 10 Mg Supp) 10 mg RC DAILY PRN PRN Reason: Constipation Stop: 06/06/19 01:30 Budesonide (Pulmicort) 0.5 mg HHN BIDRT [facility] Stop: 06/07/19 18:59 Last Admin: 04/14/19 06:52 Dose: 0.5 mg Divalproex Sodium (Depakote Er) 250 mg PO Q12HR [facility]; Protocol Stop: 06/06/19 20:59 Last Admin: 04/14/19 08:46 Dose: 250 mg Docusate Sodium (Colace) 100 mg PO BID [facility] Stop: 06/06/19 08:59 Last Admin: 04/14/19 08:54 Dose: 100 mg Dorzolamide HCl (Trusopt 2% Oph Soln) 1 drop EACH EYE 2100 [facility] Stop: 06/06/19 20:59 Last Admin: 04/13/19 21:04 Dose: Not Given Furosemide (Lasix) 40 mg PO DAILY [facility] Stop: 06/06/19 08:59 Last Admin: 04/14/19 08:47 Dose: Not Given Insulin Glargine (Lantus Insulin) 30 units SUBQ QAM [facility] Stop: 06/12/19 08:59 Last Admin: 04/14/19 08:56 Dose: 30 units Insulin Human Lispro (Humalog Insulin Sliding Scale) 0 units SUBQ ACHS [facility]; Protocol Stop: 06/06/19 07:29 Last Admin: 04/14/19 11:48 Dose: 3 units Isosorbide Mononitrate (Imdur) 30 mg PO 1700 [facility] Stop: 06/06/19 16:59 Last Admin: 04/13/19 16:37 Dose: 30 mg Lactulose (Cephulac) 20 gm PO BID [facility] Stop: 06/06/19 08:59 Last Admin: 04/14/19 09:13 Dose: Not Given Levetiracetam (Keppra) 500 mg PO BID [facility] Stop: 06/06/19 08:59 Last Admin: 04/14/19 08:47 Dose: 500 mg Lorazepam (Ativan) 0.5 mg PO Q4HR PRN; Protocol PRN Reason: Agitation Stop: 05/07/19 01:22 Last Admin: 04/14/19 04:31 Dose: 0.5 mg Losartan Potassium (Cozaar) 50 mg PO DAILY [facility] Stop: 06/06/19 08:59 Last Admin: 04/14/19 08:46 Dose: Not Given Magnesium Hydroxide (Milk Of Magnesia) 30 ml PO DAILY PRN PRN Reason: Constipation Stop: 06/06/19 08:41 Pantoprazole Sodium (Protonix) 40 mg PO QDAC [facility] Stop: 06/06/19 07:29 Last Admin: 04/14/19 06:42 Dose: 40 mg Risperidone (Risperdal) 0.5 mg PO BID [facility]; Protocol Stop: 06/10/19 08:59 Last Admin: 04/14/19 08:45 Dose: 0.5 mg Simethicone (Mylicon) 80 mg PO TIDWM [facility] Stop: 06/06/19 11:59 Last Admin: 04/14/19 08:44 Dose: 80 mg Sitagliptin Phosphate (Januvia) 100 mg PO DAILY [facility] Stop: 06/06/19 08:59 Last Admin: 04/14/19 08:45 Dose: 100 mg Spironolactone (Aldactone) 12.5 mg PO DAILY [facility] Stop: 06/06/19 08:59 Last Admin: 04/14/19 08:49 Dose: Not Given Zolpidem Tartrate (Ambien) 5 mg PO HS PRN PRN Reason: Insomnia Stop: 06/06/19 01:22 Last Admin: 04/11/19 21:08 Dose: 5 mg General: alert HEENT: NC/AT, PERRLA, EOMI Neck: Supple, No JVD Lungs: CTAB Cardiovascular: RRR, Normal S1, Normal S2, without murmur Abdomen: soft, non-tender, non-distended, positive bowel sound Extremities: excoriation Internal Medicine Assmt/Plan - Assessment Assessment: ASSESSMENT AND PLAN: Alcohol abuse, cirrhosis, hypertension, chronic pain syndrome, varicose veins, diabetes, elevated ammonia, chronic obstructive pulmonary disease, legally blind, coronary artery disease, and seizure. noncompliance - Plan Plan: PLAN: Continue insulin sliding scale. We will review the patient's medications. Continue anticoagulation. We will continue on fall precaution. Continue on diuretics. We will review the patient's labs once it becomes available. We will follow with you, Dr. Wheeler. check labs ate 60 percent, meds adjusted refused labs Nutritional Asmnt/Malnutr-PDOC - Dietary Evaluation Malnutrition Findings (Please click <Entered> for more info): Nutritional Asmnt/Malnutrition Start: 04/11/19 11: 04 Text: Status: Complete Freq: Protocol: Document 04/11/19 11:04 KRANTHI (Rec: 04/11/19 11:08 [email or web address] [email or web address]) Nutritional Asmnt/Malnutrition Patient General Information Nutritional Screening Moderate Risk Diagnosis Psychosis Pertinent Medical Hx/Surgical Hx DM, cirrhosis, HTN, hypercholesterolemia, CAD, seizure, COPD, legally blind. Subjective Information Pt is a 68-year-old male admitted from [facility] d/t being a danger to himself and others, pt on a 5150. HT: 57 WT: 121 LB (55 kg) BMI: 18.95 (Normal) GI: WNL, distended, ascitic BM: 04/09 x1 I/O: 240/Not Noted Skin: Area of concern Wound: RT forearm has dry skin tears x3. LT forearm has multiple areas of eccymosis, no dressings needed per wound care orders. Zach: 17 Diet Order: Cardiac, NCS, NEFTALI Estimated Energy Needs: ( Geriatric, CBW) 7753-4373 kcals (25-30 kcals/ kg) 55-66G Pro (1.0-1.2 g/kg) 7974-5386 ml (25-30 ml/kg) Pt is eating 80% of meals Per Meal/Nutrition Activity Record . Dietary is currently providing an estimated 1980 kcals and 115 gm Pro, per Pt PO intake this is providing an estimated 1584 kcals and 91gm Pro to meet 100% kcal and 100 +% Pro needs. Current Diet Order/ Nutrition Support Cardiac, NCS, NEFTALI Pertinent Medications Maalox (PRN), Albuterol (PRN), Lipitor, Dulcolax (PRN), Colace, Lasix, Lantus, INS-SS, Cephulac, Keppra, Cozaar, MOM (PRN), Protonix, Mylicon, Aldactone Pertinent Labs 04/09: POC Glucose 131, 88,73, 212, 198, 221 Nutritional Hx/Data Height 1.7 m Height (Calculated Centimeters) 170.2 Current Weight (lbs) 54.885 kg Weight (Calculated Kilograms) 54.9 Weight (Calculated Grams) 83719.7 [place] Body Weight 148lb (67.27kg) % [place] Body Weight 82 Body Mass Index (BMI) 18.9 Weight Status Approriate GI Symptoms GI Symptoms None Last BM 04/09 x1 Skin Integrity/Comment: Skin: Area of concern Wound: RT forearm has dry skin tears x3. LT forearm has multiple areas of eccymosis, no dressings needed per wound care orders. Zach: 17 Current %PO Good (75-100%) Estimated Nutritional Goals BEE in Kcals: Using Current wt Calories/Kcals/Kg 25-30 Kcals Calculated 4250-9697 Protein: Using Current wt Protein g/k.0-1.2 Protein Calculated 55-66 Fluid: ml 5743-9879 ml (25-30 ml/kg) Nutritional Problem 1. Problem Problem altered nutrition related labs Etiology r/t endocrine dysfunction Signs/Symptoms: aeb POC Glucose (04/09) 131, 88 ,73, 212, 198, 221 Malnutrition Related to Morbid Obesity Malnutrition related to morbid obesity No Intervention/Recommendation Comments 1. Continue with Cardiac, NCS, NEFTALI diet as ordered. 2. Continue with antihyperglycemic medications for glucose control per MD order. Expected Outcomes/Goals Expected Outcomes/Goals 1. PO intake to continue to meet 75% of nutritional needs. 2. Monitor PO intake, wt, nutrition related labs, and skin integrity to trend WNL. 3. F/U as low risk in 7 days, 04/18
[2019-04-15] MEDS: Albuterol/Ipratropium Neb 3 ML AERS HHN SCH ×8 (02:30→22:17)
[2019-04-15] MEDS: INSULIN LISPRO SLIDING SCALE 100 UNITS/ML UNIT SUBQ SCH ×5 (06:45→21:52)
[2019-04-15] MEDS: Pantoprazole 40 mg EC Tab PO SCH (06:47)
[2019-04-15] MEDS: Budesonide 0.5 Mg/2 mL Ud HHN SCH ×2 (07:44→18:29)
[2019-04-15] MEDS: Lactulose 10 Gm/15 mL 30mL UDC PO SCH ×2 (09:16→17:11)
[2019-04-15] MEDS: Apixaban 2.5 MG TABLET PO SCH ×2 (09:19→17:11)
[2019-04-15] MEDS: Hydrocodone/APAP 10 mg/325 mg Tab PO PRN ×2 (09:27→21:17)
[2019-04-15] MEDS: Insulin Glargine 100 units/ml 10ml Vial SUBQ SCH (11:15)
--- NOTE | 2019-04-15 13:22 | Internal Medicine Prog Note ---
Internal Medicine Subjective - Subjective Patient seen and examined:: with staff, chart reviewed Patient is:: awake, verbal, interactive, agitated Per staff patient has:: no adverse event, no episodes of fall, agitated, combative, noncompliant Internal Medicine Objective - Results Recent Labs: Laboratory Last Values POC Glucose 221 MG/DL (70 - 105) H 04/11/19 08:44 Urine Source CLEAN C 04/07/19 13:15 Urine Color YELLOW 04/07/19 13:15 Urine Clarity CLEAR (CLEAR) 04/07/19 13:15 Urine pH 7.5 (4.6 - 8.0) 04/07/19 13:15 Ur Specific [place] 1.010 (1.005-1.030) 04/07/19 13:15 Urine Protein 100 mg/dL (NEGATIVE) H 04/07/19 13:15 Urine Glucose (UA) 100 mg/dL (NEGATIVE) H 04/07/19 13:15 Urine Ketones NEGATIVE mg/dL (NEGATIVE) 04/07/19 13:15 Urine Blood SMALL (NEGATIVE) H 04/07/19 13:15 Urine Nitrate NEGATIVE (NEGATIVE) 04/07/19 13:15 Urine Bilirubin NEGATIVE (NEGATIVE) 04/07/19 13:15 Urine Urobilinogen 0.2 E.U./dL (0.2 - 1.0) 04/07/19 13:15 Ur Leukocyte Esterase NEGATIVE (NEGATIVE) 04/07/19 13:15 Urine RBC 2-5 /hpf (0-5) H 04/07/19 13:15 Urine WBC NONE SEEN /hpf (0-5) 04/07/19 13:15 Ur Epithelial Cells NONE SEEN /lpf (FEW) 04/07/19 13:15 Urine Bacteria NONE SEEN /hpf (NONE SEEN) 04/07/19 13:15 - Physical Exam Vitals and I&O: Vital Signs Temp 98.8 F 04/14/19 14:00 Pulse 96 04/15/19 11:08 Resp 30 04/15/19 11:08 BP 140/68 04/14/19 17:04 Pulse Ox 97 04/15/19 11:08 Intake & Output 04/14/19 04/15/19 04/15/19 18:59 06:59 18:59 Intake Total 1300 Balance 1300 Intake: Oral 1300 Other: # Voids 4 # Bowel Movements 0 Active Medications: Current Medications Acetaminophen (Tylenol) 650 mg PO Q6HR PRN PRN Reason: Pain or Fever >101 Stop: 06/06/19 08:41 Acetaminophen/Hydrocodone Bitart ([place] 10 Mg/325 Mg) 1 tab PO Q6HR PRN PRN Reason: Pain (Severe) Stop: 06/06/19 01:30 Last Admin: 04/15/19 09:27 Dose: 1 tab Al Hydrox/Mg Hydrox/Simethicone (Maalox) 30 ml PO Q4HR PRN PRN Reason: GI DISTRESS Stop: 06/06/19 01:22 Last Admin: 04/11/19 21:08 Dose: 30 ml Albuterol/Ipratropium (Duoneb Neb) 3 ml HHN Q4HRT [facility] Stop: 06/07/19 18:59 Last Admin: 04/15/19 11:06 Dose: 3 ml Albuterol/Ipratropium (Duoneb Neb) 3 ml HHN Q4HRT PRN PRN Reason: Wheezing Stop: 06/07/19 16:44 Last Admin: 04/14/19 04:14 Dose: 3 ml Amlodipine Besylate (Norvasc) 10 mg PO DAILY [facility] Stop: 06/06/19 08:59 Last Admin: 04/15/19 11:10 Dose: Not Given Lipase/Protease/Amylase (Zenpep 5,000 U) 2 cap PO TIDWM [facility] Stop: 06/06/19 07:59 Last Admin: 04/15/19 09:16 Dose: 2 cap Bisacodyl (Dulcolax 10 Mg Supp) 10 mg RC DAILY PRN PRN Reason: Constipation Stop: 06/06/19 01:30 Budesonide (Pulmicort) 0.5 mg HHN BIDRT [facility] Stop: 06/07/19 18:59 Last Admin: 04/15/19 07:44 Dose: 0.5 mg Divalproex Sodium (Depakote Er) 250 mg PO Q12HR [facility]; Protocol Stop: 06/06/19 20:59 Last Admin: 04/15/19 09:19 Dose: 250 mg Docusate Sodium (Colace) 100 mg PO BID [facility] Stop: 06/06/19 08:59 Last Admin: 04/15/19 09:19 Dose: 100 mg [facility] 1 drop E[facility]YE 2100 [facility] Stop: 06/06/19 20:59 Last Admin: 04/14/19 20:00 Dose: Not Given Furosemide (Lasix) 40 mg PO DAILY [facility] Stop: 06/06/19 08:59 Last Admin: 04/15/19 11:12 Dose: Not Given Insulin Glargine (Lantus Insulin) 30 units SUBQ QAM [facility] Stop: 06/12/19 08:59 Last Admin: 04/15/19 11:15 Dose: 30 units Insulin Human Lispro (Humalog Insulin Sliding Scale) 0 units SUBQ ACHS [facility]; Protocol Stop: 06/06/19 07:29 Last Admin: 04/15/19 11:46 Dose: 5 units Isosorbide Mononitrate (Imdur) 30 mg PO 1700 [facility] Stop: 06/06/19 16:59 Last Admin: 04/14/19 17:04 Dose: 30 mg Lactulose (Cephulac) 20 gm PO BID [facility] Stop: 06/06/19 08:59 Last Admin: 04/15/19 09:16 Dose: 20 gm Levetiracetam (Keppra) 500 mg PO BID [facility] Stop: 06/06/19 08:59 Last Admin: 04/15/19 09:19 Dose: 500 mg Lorazepam (Ativan) 0.5 mg PO Q4HR PRN; Protocol PRN Reason: Agitation Stop: 05/07/19 01:22 Last Admin: 04/14/19 14:59 Dose: 0.5 mg Losartan Potassium (Cozaar) 50 mg PO DAILY [facility] Stop: 06/06/19 08:59 Last Admin: 04/15/19 11:12 Dose: Not Given Magnesium Hydroxide (Milk Of Magnesia) 30 ml PO DAILY PRN PRN Reason: Constipation Stop: 06/06/19 08:41 Pantoprazole Sodium (Protonix) 40 mg PO QDAC [facility] Stop: 06/06/19 07:29 Last Admin: 04/15/19 06:47 Dose: 40 mg Risperidone (Risperdal) 0.75 mg PO BID [facility]; Protocol Stop: 06/14/19 08:59 Last Admin: 04/15/19 09:20 Dose: 0.75 mg Simethicone (Mylicon) 80 mg PO TIDWM [facility] Stop: 06/06/19 11:59 Last Admin: 04/15/19 09:17 Dose: 80 mg Sitagliptin Phosphate (Januvia) 100 mg PO DAILY [facility] Stop: 06/06/19 08:59 Last Admin: 04/15/19 09:18 Dose: 100 mg Spironolactone (Aldactone) 12.5 mg PO DAILY [facility] Stop: 06/06/19 08:59 Last Admin: 04/15/19 11:12 Dose: Not Given Zolpidem Tartrate (Ambien) 5 mg PO HS PRN PRN Reason: Insomnia Stop: 06/06/19 01:22 Last Admin: 04/11/19 21:08 Dose: 5 mg General: alert HEENT: NC/AT, PERRLA, EOMI Neck: Supple, No JVD Lungs: CTAB Cardiovascular: RRR, Normal S1, Normal S2, without murmur Abdomen: soft, non-tender, non-distended, positive bowel sound Extremities: excoriation Internal Medicine Assmt/Plan - Assessment Assessment: ASSESSMENT AND PLAN: Alcohol abuse, cirrhosis, hypertension, chronic pain syndrome, varicose veins, diabetes, elevated ammonia, chronic obstructive pulmonary disease, legally blind, coronary artery disease, and seizure. noncompliance - Plan Plan: PLAN: Continue insulin sliding scale. We will review the patient's medications. Continue anticoagulation. We will continue on fall precaution. Continue on diuretics. We will review the patient's labs once it becomes available. We will follow with you, Dr. Wheeler. check labs ate 60 percent, meds adjusted refused labs Nutritional Asmnt/Malnutr-PDOC - Dietary Evaluation Malnutrition Findings (Please click <Entered> for more info): Nutritional Asmnt/Malnutrition Start: 04/11/19 11: 04 Text: Status: Complete Freq: Protocol: Document 04/11/19 11:04 KRANTHI (Rec: 04/11/19 11:08 KRANTHI [email or web address]) Nutritional Asmnt/Malnutrition Patient General Information Nutritional Screening Moderate Risk Diagnosis Psychosis Pertinent Medical Hx/Surgical Hx DM, cirrhosis, HTN, hypercholesterolemia, CAD, seizure, COPD, legally blind. Subjective Information Pt is a 68-year-old male admitted from assisted on 04/06 d/t being a danger to himself and others, pt on a 5150. HT: 57 WT: 121 LB (55 kg) BMI: 18.95 (Normal) GI: WNL, distended, ascitic BM: 04/09 x1 I/O: 240/Not Noted Skin: Area of concern Wound: RT forearm has dry skin tears x3. LT forearm has multiple areas of eccymosis, no dressings needed per wound care orders. Zach: 17 Diet Order: Cardiac, NCS, NEFTALI Estimated Energy Needs: ( Geriatric, CBW) 4838-8320 kcals (25-30 kcals/ kg) 55-66G Pro (1.0-1.2 g/kg) 6348-9078 ml (25-30 ml/kg) Pt is eating 80% of meals Per Meal/Nutrition Activity Record . Dietary is currently providing an estimated 1980 kcals and 115 gm Pro, per Pt PO intake this is providing an estimated 1584 kcals and 91gm Pro to meet 100% kcal and 100 +% Pro needs. Current Diet Order/ Nutrition Support Cardiac, NCS, NEFTALI Pertinent Medications Maalox (PRN), Albuterol (PRN), Lipitor, Dulcolax (PRN), Colace, Lasix, Lantus, INS-SS, Cephulac, Keppra, Cozaar, MOM (PRN), Protonix, Mylicon, Aldactone Pertinent Labs 04/09: POC Glucose 131, 88,73, 212, 198, 221 Nutritional Hx/Data Height 1.7 m Height (Calculated Centimeters) 170.2 Current Weight (lbs) 54.885 kg Weight (Calculated Kilograms) 54.9 Weight (Calculated Grams) 18509.7 [place] Body Weight 148lb (67.27kg) % [place] Body Weight 82 Body Mass Index (BMI) 18.9 Weight Status Approriate GI Symptoms GI Symptoms None Last BM 04/09 x1 Skin Integrity/Comment: Skin: Area of concern Wound: RT forearm has dry skin tears x3. LT forearm has multiple areas of eccymosis, no dressings needed per wound care orders. Zach: 17 Current %PO Good (75-100%) Estimated Nutritional Goals BEE in Kcals: Using Current wt Calories/Kcals/Kg 25-30 Kcals Calculated 2320-8932 Protein: Using Current wt Protein g/k.0-1.2 Protein Calculated 55-66 Fluid: ml 0269-2098 ml (25-30 ml/kg) Nutritional Problem 1. Problem Problem altered nutrition related labs Etiology r/t endocrine dysfunction Signs/Symptoms: aeb POC Glucose (04/09) 131, 88 ,73, 212, 198, 221 Malnutrition Related to Morbid Obesity Malnutrition related to morbid obesity No Intervention/Recommendation Comments 1. Continue with Cardiac, NCS, NEFTALI diet as ordered. 2. Continue with antihyperglycemic medications for glucose control per MD order. Expected Outcomes/Goals Expected Outcomes/Goals 1. PO intake to continue to meet 75% of nutritional needs. 2. Monitor PO intake, wt, nutrition related labs, and skin integrity to trend WNL. 3. F/U as low risk in 7 days, 04/18
--- NOTE | 2019-04-15 14:51 | Progress Notes ---
DATE: SUBJECTIVE: Chart was reviewed and the patient interviewed. Also discussed the patient's condition with the staff and reviewed the records. The patient is still angry and in irritable mood. The patient also is anxious and is restless. The patient also is having difficulty expressing himself and expressing his needs ____. He also is angry in mood and he still is agitated. Otherwise, the patient is compliant with taking his medications with no side effects. ASSESSMENT: The patient is still psychotic and agitated. TREATMENT PLAN: Continue to monitor behavior and condition closely. Also, continue adjusting psychotropic medications and work on behavioral modification. [facility]# [id number]
--- NOTE | 2019-04-15 20:32 | Progress Notes ---
DATE: SUBJECTIVE: Chart was reviewed and the patient interviewed. Also discussed the patient's condition with the staff and reviewed records and labs. The patient is still easily agitated and is still in irritable mood. The patient also is demanding. Also, is confused and he is trying to get off the bed, exposing himself to dangerous situations. At the same time, the patient is compliant with medications. ASSESSMENT: The patient is still depressed and seems to be paranoid. TREATMENT PLAN: Continue to monitor behavior and condition closely. Also, increase Risperdal to 0.75 mg twice a day and we will continue to follow up closely. JOB# [id number]
[2019-04-16] MEDS: Albuterol/Ipratropium Neb 3 ML AERS HHN SCH ×5 (02:24→18:28)
[2019-04-16] MEDS: Budesonide 0.5 Mg/2 mL Ud HHN SCH ×2 (06:33→18:28)
[2019-04-16] MEDS: INSULIN LISPRO SLIDING SCALE 100 UNITS/ML UNIT SUBQ SCH ×3 (06:39→16:58)
[2019-04-16] MEDS: Pantoprazole 40 mg EC Tab PO SCH (06:44)
[2019-04-16] MEDS: Hydrocodone/APAP 10 mg/325 mg Tab PO PRN (06:45)
[2019-04-16] MEDS: Apixaban 2.5 MG TABLET PO SCH ×2 (09:07→16:02)
[2019-04-16] MEDS: Lactulose 10 Gm/15 mL 30mL UDC PO SCH ×2 (09:07→16:02)
[2019-04-16] MEDS: Insulin Glargine 100 units/ml 10ml Vial SUBQ SCH (09:38)
--- NOTE | 2019-04-16 13:59 | Internal Medicine Prog Note ---
Internal Medicine Subjective - Subjective Service Date: 04/16/19 Patient is:: awake, verbal, interactive, agitated Per staff patient has:: no adverse event, no episodes of fall, agitated, combative, noncompliant Internal Medicine Objective - Results Recent Labs: Laboratory Last Values POC Glucose 221 MG/DL (70 - 105) H 04/11/19 08:44 Urine Source CLEAN C 04/07/19 13:15 Urine Color YELLOW 04/07/19 13:15 Urine Clarity CLEAR (CLEAR) 04/07/19 13:15 Urine pH 7.5 (4.6 - 8.0) 04/07/19 13:15 Ur Specific [place] 1.010 (1.005-1.030) 04/07/19 13:15 Urine Protein 100 mg/dL (NEGATIVE) H 04/07/19 13:15 Urine Glucose (UA) 100 mg/dL (NEGATIVE) H 04/07/19 13:15 Urine Ketones NEGATIVE mg/dL (NEGATIVE) 04/07/19 13:15 Urine Blood SMALL (NEGATIVE) H 04/07/19 13:15 Urine Nitrate NEGATIVE (NEGATIVE) 04/07/19 13:15 Urine Bilirubin NEGATIVE (NEGATIVE) 04/07/19 13:15 Urine Urobilinogen 0.2 E.U./dL (0.2 - 1.0) 04/07/19 13:15 Ur Leukocyte Esterase NEGATIVE (NEGATIVE) 04/07/19 13:15 Urine RBC 2-5 /hpf (0-5) H 04/07/19 13:15 Urine WBC NONE SEEN /hpf (0-5) 04/07/19 13:15 Ur Epithelial Cells NONE SEEN /lpf (FEW) 04/07/19 13:15 Urine Bacteria NONE SEEN /hpf (NONE SEEN) 04/07/19 13:15 - Physical Exam Vitals and I&O: Vital Signs Temp 97.8 F 04/16/19 13:43 Pulse 82 04/16/19 13:43 Resp 19 04/16/19 13:43 BP 128/71 04/16/19 13:43 Pulse Ox 97 04/16/19 13:43 Intake & Output 04/15/19 04/16/19 04/16/19 18:59 06:59 18:59 Intake Total 900 120 Balance 900 120 Intake: Oral 900 120 Other: # Voids 4 3 # Bowel Movements 0 0 Active Medications: Current Medications Acetaminophen (Tylenol) 650 mg PO Q6HR PRN PRN Reason: Pain or Fever >101 Stop: 06/06/19 08:41 Acetaminophen/Hydrocodone Bitart ([place] 10 Mg/325 Mg) 1 tab PO Q6HR PRN PRN Reason: Pain (Severe) Stop: 06/06/19 01:30 Last Admin: 04/16/19 06:45 Dose: 1 tab Al Hydrox/Mg Hydrox/Simethicone (Maalox) 30 ml PO Q4HR PRN PRN Reason: GI DISTRESS Stop: 06/06/19 01:22 Last Admin: 04/11/19 21:08 Dose: 30 ml Albuterol/Ipratropium (Duoneb Neb) 3 ml HHN Q4HRT [facility] Stop: 06/07/19 18:59 Last Admin: 04/16/19 10:14 Dose: 3 ml Albuterol/Ipratropium (Duoneb Neb) 3 ml HHN Q4HRT PRN PRN Reason: Wheezing Stop: 06/07/19 16:44 Last Admin: 04/14/19 04:14 Dose: 3 ml Amlodipine Besylate (Norvasc) 10 mg PO DAILY [facility] Stop: 06/06/19 08:59 Last Admin: 04/16/19 09:14 Dose: Not Given Lipase/Protease/Amylase (Zenpep 5,000 U) 2 cap PO TIDWM [facility] Stop: 06/06/19 07:59 Last Admin: 04/16/19 12:06 Dose: 2 cap Bisacodyl (Dulcolax 10 Mg Supp) 10 mg RC DAILY PRN PRN Reason: Constipation Stop: 06/06/19 01:30 Budesonide (Pulmicort) 0.5 mg HHN BIDRT [facility] Stop: 06/07/19 18:59 Last Admin: 04/16/19 06:33 Dose: 0.5 mg Divalproex Sodium (Depakote Er) 250 mg PO Q12HR [facility]; Protocol Stop: 06/06/19 20:59 Last Admin: 04/16/19 09:08 Dose: Not Given Docusate Sodium (Colace) 100 mg PO BID [facility] Stop: 06/06/19 08:59 Last Admin: 04/16/19 09:09 Dose: Not Given Dorzolamide HCl ([facility] 1 drop EACH EYE 2100 [facility] Stop: 06/06/19 20:59 Last Admin: 04/15/19 21:51 Dose: Not Given Furosemide (Lasix) 40 mg PO DAILY [facility] Stop: 06/06/19 08:59 Last Admin: 04/16/19 09:15 Dose: Not Given Insulin Glargine (Lantus Insulin) 30 units SUBQ QAM [facility] Stop: 06/12/19 08:59 Last Admin: 04/16/19 09:38 Dose: Not Given Insulin Human Lispro (Humalog Insulin Sliding Scale) 0 units SUBQ ACHS [facility]; Protocol Stop: 06/06/19 07:29 Last Admin: 04/16/19 12:07 Dose: 3 units Isosorbide Mononitrate (Imdur) 30 mg PO 1700 [facility] Stop: 06/06/19 16:59 Last Admin: 04/15/19 17:12 Dose: 30 mg Lactulose (Cephulac) 20 gm PO BID [facility] Stop: 06/06/19 08:59 Last Admin: 04/16/19 09:07 Dose: Not Given Levetiracetam (Keppra) 500 mg PO BID [facility] Stop: 06/06/19 08:59 Last Admin: 04/16/19 09:10 Dose: Not Given Lorazepam (Ativan) 0.5 mg PO Q4HR PRN; Protocol PRN Reason: Agitation Stop: 05/07/19 01:22 Last Admin: 04/16/19 06:30 Dose: 0.5 mg Losartan Potassium (Cozaar) 50 mg PO DAILY [facility] Stop: 06/06/19 08:59 Last Admin: 04/16/19 09:18 Dose: Not Given Magnesium Hydroxide (Milk Of Magnesia) 30 ml PO DAILY PRN PRN Reason: Constipation Stop: 06/06/19 08:41 Pantoprazole Sodium (Protonix) 40 mg PO QDAC [facility] Stop: 06/06/19 07:29 Last Admin: 04/16/19 06:44 Dose: 40 mg Risperidone (Risperdal) 0.75 mg PO BID [facility]; Protocol Stop: 06/14/19 08:59 Last Admin: 04/16/19 09:11 Dose: Not Given Simethicone (Mylicon) 80 mg PO TIDWM [facility] Stop: 06/06/19 11:59 Last Admin: 04/16/19 12:06 Dose: 80 mg Sitagliptin Phosphate (Januvia) 100 mg PO DAILY [facility] Stop: 06/06/19 08:59 Last Admin: 04/16/19 09:09 Dose: Not Given Spironolactone (Aldactone) 12.5 mg PO DAILY [facility] Stop: 06/06/19 08:59 Last Admin: 04/16/19 09:16 Dose: Not Given Zolpidem Tartrate (Ambien) 5 mg PO HS PRN PRN Reason: Insomnia Stop: 06/06/19 01:22 Last Admin: 04/11/19 21:08 Dose: 5 mg General: alert HEENT: NC/AT, PERRLA, EOMI Neck: Supple, No JVD Lungs: CTAB Cardiovascular: RRR, Normal S1, Normal S2, without murmur Abdomen: soft, non-tender, non-distended, positive bowel sound Extremities: excoriation Internal Medicine Assmt/Plan - Assessment Assessment: Alcohol abuse, cirrhosis, hypertension, chronic pain syndrome, varicose veins, diabetes, elevated ammonia, chronic obstructive pulmonary disease, legally blind, coronary artery disease, and seizure. noncompliance - Plan Plan: fall precautions cont meds continue current plan of care Nutritional Asmnt/Malnutr-PDOC - Dietary Evaluation Malnutrition Findings (Please click <Entered> for more info): Nutritional Asmnt/Malnutrition Start: 04/11/19 11: 04 Text: Status: Complete Freq: Protocol: Document 04/11/19 11:04 KRANTHI (Rec: 04/11/19 11:08 KRANTHI [email or web address]) Nutritional Asmnt/Malnutrition Patient General Information Nutritional Screening Moderate Risk Diagnosis Psychosis Pertinent Medical Hx/Surgical Hx DM, cirrhosis, HTN, hypercholesterolemia, CAD, seizure, COPD, legally blind. Subjective Information Pt is a 68-year-old male admitted from snf on 04/06 d/t being a danger to himself and others, pt on a 5150. HT: 57 WT: 121 LB (55 kg) BMI: 18.95 (Normal) GI: WNL, distended, ascitic BM: 04/09 x1 I/O: 240/Not Noted Skin: Area of concern Wound: RT forearm has dry skin tears x3. LT forearm has multiple areas of eccymosis, no dressings needed per wound care orders. Zach: 17 Diet Order: Cardiac, NCS, NEFTALI Estimated Energy Needs: ( Geriatric, CBW) 4422-0051 kcals (25-30 kcals/ kg) 55-66G Pro (1.0-1.2 g/kg) 1798-1308 ml (25-30 ml/kg) Pt is eating 80% of meals Per Meal/Nutrition Activity Record . Dietary is currently providing an estimated 1980 kcals and 115 gm Pro, per Pt PO intake this is providing an estimated 1584 kcals and 91gm Pro to meet 100% kcal and 100 +% Pro needs. Current Diet Order/ Nutrition Support Cardiac, NCS, NEFTALI Pertinent Medications Maalox (PRN), Albuterol (PRN), Lipitor, Dulcolax (PRN), Colace, Lasix, Lantus, INS-SS, Cephulac, Keppra, Cozaar, MOM (PRN), Protonix, Mylicon, Aldactone Pertinent Labs 04/09: POC Glucose 131, 88,73, 212, 198, 221 Nutritional Hx/Data Height 5 ft 7 in Height (Calculated Centimeters) 170.2 Current Weight (lbs) 121 lb Weight (Calculated Kilograms) 54.9 Weight (Calculated Grams) 19688.7 [place] Body Weight 148lb (67.27kg) % [place] Body Weight 82 Body Mass Index (BMI) 18.9 Weight Status Approriate GI Symptoms GI Symptoms None Last BM 04/09 x1 Skin Integrity/Comment: Skin: Area of concern Wound: RT forearm has dry skin tears x3. LT forearm has multiple areas of eccymosis, no dressings needed per wound care orders. Zach: 17 Current %PO Good (75-100%) Estimated Nutritional Goals BEE in Kcals: Using Current wt Calories/Kcals/Kg 25-30 Kcals Calculated 7732-2913 Protein: Using Current wt Protein g/k.0-1.2 Protein Calculated 55-66 Fluid: ml 3592-1125 ml (25-30 ml/kg) Nutritional Problem 1. Problem Problem altered nutrition related labs Etiology r/t endocrine dysfunction Signs/Symptoms: aeb POC Glucose (04/09) 131, 88 ,73, 212, 198, 221 Malnutrition Related to Morbid Obesity Malnutrition related to morbid obesity No Intervention/Recommendation Comments 1. Continue with Cardiac, NCS, NEFTALI diet as ordered. 2. Continue with antihyperglycemic medications for glucose control per MD order. Expected Outcomes/Goals Expected Outcomes/Goals 1. PO intake to continue to meet 75% of nutritional needs. 2. Monitor PO intake, wt, nutrition related labs, and skin integrity to trend WNL. 3. F/U as low risk in 7 days, 04/18
[2019-04-16] MEDS: Albuterol/Ipratropium Neb 3 ML AERS HHN PRN (16:19)
[2019-04-16 19:00] LABS: BASOPHILE ABSOLUTE 0.1 Th/cumm (0-0.2); EOSINOPHILE ABSOLUTE 0.1 Th/cmm (0.1-0.4); HEMOGLOBIN 8.5 gm/dL (12-16); LYMPHOCYTE ABSOLUTE 0.8 Th/cmm (1.5-3.0); MONOCYTE ABSOLUTE 0.6 Th/cmm (0.3-1.0)
[2019-04-16 19:02] LABS: ALLEN TEST YES; PaCO2 48.4 mmHg (35.0-45.0); PaO2 228.6 mmHg (80.0-100.0); sO2c 99.4 % (92.0-100.0)
[2019-04-16 19:17] LABS: % BASOPHILS 1.9 % (0.0-2.0); % LYMPHOCYTES 22.4 % (20.0-50.0); % MONOCYTES 16.6 % (2.0-10.0); HEMATOCRIT 24.7 % (41.0-60); MEAN CELL VOLUME 78.5 fl (80-99); MEAN CORPUSCULAR HEMOGLOBIN 26.9 pg (27.0-31.0); MEAN CORPUSCULAR HGB CONC 34.2 pg (28.0-36.0); NEUTROPHILE ABSOLUTE 1.8 Th/cmm (1.8-8.0); PLATELET COUNT 107 Th/cmm (150-400); RED BLOOD COUNT 3.15 Mil/cmm (3.80-5.80); RED CELL DISTRIBUTION WIDTH 18.9 % (11.5-20.0)
[2019-04-16 19:19] LABS: ALB/GLOB RATIO 0.9 (1.0-1.8); ANION GAP 12.3 (7.0-16.0); BILIRUBIN,TOTAL 0.3 mg/dL (0.3-1.0); BUN - UREA NITROGEN 19 mg/dL (7-25); CALCIUM SERUM 8.5 mg/dL (8.6-10.3); CARBON DIOXIDE 24.8 mEq/L (21.0-31.0); CHLORIDE 104 mEq/L (98-107); CREATININE - SERUM 0.8 mg/dL (0.7-1.3); GFR AFRICAN-AMERICAN > 60.0 ml/min (>90); GFR NON AFRICAN-AMERICAN > 60.0 ml/min; GLUCOSE 161 mg/dL (70-105); POTASSIUM SERUM 4.1 mEq/L (3.5-5.1); SGOT 25 U/L (13-39); SGPT/ALT 29 U/L (7-52); SODIUM SERUM 137 mEq/L (136-145); TOTAL PROTEIN,SERUM 6.2 gm/dL (6.0-8.3)
[2019-04-16 19:22] LABS: WHITE BLOOD COUNT 3.4 Th/cmm (4.8-10.8)
[2019-04-16 20:16] LABS: ALKALINE PHOSPHATASE 164 U/L (34-104)
[2019-04-16 20:34] LABS: BAND NEUTROPHILE 1 % (0-10); BASOPHIL 0 % (0-3); EOSINOPHIL 1 % (0-5); LYMPHOCYTE 22 % (20-50); MONOCYTE 16 % (2-10); NEUTROPHILS 59 % (40-80)
[2019-04-17 08:06] LABS: A1C 7.8 % (4.8-5.6)
--- NOTE | 2019-04-17 09:49 | Diagnostic Imaging Report ---
CHEST X-RAY: AP view INDICATION: CVA COMPARISON: Chest x-ray 04/12/2019 FINDINGS: Developing left lung infiltrates are seen greatest along left upper lobe. There is elevation of the left hemidiaphragm. Bibasal pleural thickening is noted. Mild cardiomegaly is noted atherosclerosis. IMPRESSION: Developing left lung infiltrates greatest along the left upper lobe. There may be additional right lower lung zone infiltrates. Follow-up recommended. Mild cardiomegaly with atherosclerosis.
--- NOTE | 2019-04-17 11:17 | Discharge Summary ---
DATE OF DISCHARGE: 04/16/2019 PATIENT'S AGE: 68. SEX: Male. PHYSICIAN: Dr. Wheeler. FINAL DIAGNOSIS: PRIMARY DIAGNOSIS: Depressive mood disorder, unspecified. REASON FOR HOSPITALIZATION: The patient was admitted to the hospital from [facility] because of agitation and irritability and the patient was not able to follow staff directions and was paranoid. HOSPITAL COURSE: The patient continued to be anxious and in irritable mood. The patient also was unable to follow directions. The patient started on Risperdal and the dose adjusted to 0.75 mg twice a day. The patient was calmer and less irritable and more cooperative, but at the same time, the patient was having some shortness of breath and Dr. Rollins transferred the patient to medical floor. Physical exam of the patient showed severe liver cirrhosis and also chronic kidney disease. The patient's medical conditions deteriorated and the patient was transferred to the medical floor. EXPECTED OUTCOME AFTER DISCHARGE: Depends on hospital course in the medical floor. [facility]# [id number]
== END 2019-04-16 21:15 | disposition short-term general hospital (02) | DRG 881 ==
LOC: ER 20:37 → GERO2 23:30 → GERO 04-11 19:07
PROVIDERS: ADMIT Psychiatry & Neurology Psychiatry; ATTEND Psychiatry & Neurology Psychiatry
DX: F32.9 Major depressive disorder, single episode, unspecified (principal); E72.20 Disorder of urea cycle metabolism, unspecified; F29 Unspecified psychosis not due to a substance or known physiological condition; F03.90 Unspecified dementia, unspecified severity, without behavioral disturbance, psychotic disturbance, mood disturbance, and anxiety; F10.10 Alcohol abuse, uncomplicated; J44.9 Chronic obstructive pulmonary disease, unspecified; G89.4 Chronic pain syndrome; I10 Essential (primary) hypertension; H54.8 Legal blindness, as defined in USA; I25.10 Atherosclerotic heart disease of native coronary artery without angina pectoris; E11.9 Type 2 diabetes mellitus without complications; E78.00 Pure hypercholesterolemia, unspecified; K70.31 Alcoholic cirrhosis of liver with ascites; I83.90 Asymptomatic varicose veins of unspecified lower extremity; G40.909 Epilepsy, unspecified, not intractable, without status epilepticus; E78.5 Hyperlipidemia, unspecified; Z87.891 Personal history of nicotine dependence
CPT/HCPCS: 36415-UA; 71045-TC; 80053-TC; 80164-TC; 81001-TC; 82803-TC; 82948-90; 83036-90; 83605; 83880-TC; 84443-TC; 84484-TC; 85007-TC; 85025-TC; 93005; 94640; 94760; J1815; J7613; Z7610

== ENCOUNTER 2019-04-16 21:15 | Inpatient (IN) | payer MEDICARE, OTHER ==
[2019-04-16] MEDS ORDERED: Albuterol/Ipratropium Neb 3 ML AERS HHN PRN (22:08)
[2019-04-16] MEDS ORDERED: Albuterol/Ipratropium Neb 3 ML AERS HHN SCH (23:00)
[2019-04-17] MEDS: NITROGLYCERIN OINT 2% 1 INCH PACKET TP SCH ×4 (00:10→17:08)
[2019-04-17 00:11] VITALS: BP 143/67
[2019-04-17] MEDS: Albuterol/Ipratropium Neb 3 ML AERS HHN SCH ×4 (01:31→18:46)
[2019-04-17] MEDS ORDERED: Piperacillin Sodium/Tazobact 3.375 gm Vial IV ONE (04:35)
[2019-04-17 08:12] LABS: EOSINOPHILE ABSOLUTE 0.1 Th/cmm (0.1-0.4); HEMATOCRIT 24.4 % (41.0-60); HEMOGLOBIN 8.1 gm/dL (12-16); LYMPHOCYTE ABSOLUTE 0.5 Th/cmm (1.5-3.0); MEAN CORPUSCULAR HEMOGLOBIN 25.8 pg (27.0-31.0); MEAN CORPUSCULAR HGB CONC 33.1 pg (28.0-36.0); MONOCYTE ABSOLUTE 0.6 Th/cmm (0.3-1.0); NEUTROPHILE ABSOLUTE 2.2 Th/cmm (1.8-8.0); PLATELET COUNT 104 Th/cmm (150-400); RED BLOOD COUNT 3.13 Mil/cmm (3.80-5.80); RED CELL DISTRIBUTION WIDTH 19.2 % (11.5-20.0)
[2019-04-17 08:29] LABS: WHITE BLOOD COUNT 3.4 Th/cmm (4.8-10.8)
[2019-04-17 08:33] LABS: ALB/GLOB RATIO 0.9 (1.0-1.8); ALBUMIN 2.9 gm/dL (4.2-5.5); ALKALINE PHOSPHATASE 148 U/L (34-104); ANION GAP 11.9 (7.0-16.0); BILIRUBIN,TOTAL 0.4 mg/dL (0.3-1.0); BUN - UREA NITROGEN 19 mg/dL (7-25); CALCIUM SERUM 8.7 mg/dL (8.6-10.3); CARBON DIOXIDE 25.5 mEq/L (21.0-31.0); CHLORIDE 104 mEq/L (98-107); CREATININE - SERUM 0.7 mg/dL (0.7-1.3); GFR AFRICAN-AMERICAN > 60.0 ml/min (>90); GFR NON AFRICAN-AMERICAN > 60.0 ml/min; GLUCOSE 141 mg/dL (70-105); POTASSIUM SERUM 4.4 mEq/L (3.5-5.1); SGOT 21 U/L (13-39); SGPT/ALT 26 U/L (7-52); SODIUM SERUM 137 mEq/L (136-145); TOTAL PROTEIN,SERUM 6.1 gm/dL (6.0-8.3)
[2019-04-17] MEDS: Aspirin 81mg Chewable Tab PO SCH ×2 (08:52→08:56)
[2019-04-17 09:04] LABS: BAND NEUTROPHILE 0 % (0-10); BASOPHIL 0 % (0-3); EOSINOPHIL 1 % (0-5); LYMPHOCYTE 16 % (20-50); MONOCYTE 18 % (2-10); NEUTROPHILS 65 % (40-80)
[2019-04-17] MEDS ORDERED: Dextrose 50% 50 mL Abboject IVP PRN (09:19)
[2019-04-17] MEDS ORDERED: GLUCAGON HCl 1 MG KIT IM PRN (09:19)
--- NOTE | 2019-04-17 09:40 | History & Physical ---
ADMIT DATE: 04/16/2019 PATIENT IDENTIFICATION: A 68-year-old male. CHIEF COMPLAINT: Transferred to medical side for management of respiratory distress. HISTORY OF PRESENT ILLNESS: A 68-year-old [place] male, resident of half-way, admitted initially at [facility] for psychiatric treatment where the patient followed by Dr. Moyer who was covering for me and he was getting his treatment there and noted that the patient was having significant respiratory distress. The patient was also noted to have some orthopnea as well. I did receive a call and I did advise to have workup done, which did reveal the patient had a respiratory acidosis, elevated BNP along with slightly elevated troponin. The patient was advised to be admitted in the hospital for further treatment. PAST MEDICAL HISTORY: Remarkable for: 1. Chronic obstructive pulmonary disease. 2. Liver cirrhosis. 3. History of psychotic disorder. 4. Dementia. 5. Degenerative joint disease. 6. Congestive heart failure. 7. History of splenectomy. 8. Diabetes mellitus, seizure disorder along with glaucoma. MEDICATIONS: He was taking at home, medications have been reviewed and reconciled. ALLERGIES: The patient is not allergic to medications. SOCIAL HISTORY: The patient resides in a half-way. The patient has no history of smoking cigarette, alcohol, or drug use. PHYSICAL EXAMINATION: GENERAL: The patient is alert, awake, lying in the bed without any acute distress. VITAL SIGNS: Temperature 98.8, pulse is 100, respiratory rate 20, blood pressure 136/80. HEENT: Normocephalic, atraumatic. Extraocular muscles are intact. Tongue more pink in color. Oropharynx congested. Oral mucosa congested. NECK: Supple, no JVD, no hepatojugular reflex. No lymphadenopathy, thyromegaly or carotid bruit. HEART: Both heart sounds are regular. Positive for S4. CHEST AND LUNGS: Equal in expansion with diffuse expiratory wheezing throughout. ABDOMEN: Soft, no guarding, no rigidity. Bowel sounds present. No palpable mass. EXTREMITIES: +1 trace edema noted. No calf tenderness. AVAILABLE DIAGNOSTIC DATA: Has been reviewed. CLINICAL IMPRESSION: 1. Acute respiratory distress. 2. Elevated BNP with history of diabetes, hypertension, elevated troponin, needs to rule out for congestive heart failure. 3. Ruled out aspiration pneumonia. 4. Diabetes. 5. Hypertension. 6. Hyperlipidemia. 7. Cirrhosis of liver. 8. Seizure disorder. 9. Psychotic disorder. 10. Dementia. PLAN: 1. Admit this patient to telemetry unit. 2. Oxygen. 3. Nebulizer treatment. 4. IV antibiotic. 5. IV Lasix. 6. Cardiology consult. 7. Pulmonary consult. 8. Psych consult. 9. Appropriate home medicine reconciliation. 10. General nursing care. 11. Ruled out for acute myocardial infarction by obtaining 3 sets of cardiac enzymes and EKG. 12. Follow up lab. 13. Swallow evaluation. 14. CT scan of the chest. 15. Follow information security consultant's recommendation. 16. Care plan reviewed and discussed with staff. JOB# [id number]
--- NOTE | 2019-04-17 10:03 | Diagnostic Imaging Report ---
CT Chest without IV contrast HISTORY: Shortness of breath COMPARISON: Chest x-ray on 04/16/2019. Technique: Axial images were obtained from the base of the neck to the upper abdomen without IV contrast. Reconstructions were made. Total DLP 217, CTD I 5.5 Findings: Assessment of the mediastinum is limited due to lack of IV contrast. No mediastinal lymphadenopathy. The ascending aorta measures up to 3.9 cm. Heavy atherosclerosis is noted with coronary artery calcifications. Minimal pericardial calcifications are seen. Heart size is normal. No pericardial effusion. Evaluation of the lungs demonstrates diffuse left lung infiltrates including small nodular infiltrates. Additional few faint right lung infiltrates are also noted. There is also indeterminate nodularity and infiltrate measuring 9 mm along the minor fissure. Additional smaller nodular infiltrates are seen throughout the lungs. No pleural effusions. There is marked elevation of left hemidiaphragm. Left basal pleural thickening is noted. The upper abdomen demonstrates small amount of free fluid and cirrhotic appearing liver. Gallstones are noted. Heavy atherosclerosis is noted. Degenerative changes of the spine are noted. IMPRESSION: Diffuse left lung infiltrates including multifocal nodular infiltrates. Additional less pronounced right lung infiltrates are noted with nodular infiltrates also noted, largest along the right minor fissure region measuring 9 mm. Findings favor infectious process. Neoplastic processes less likely, however, clinical correlation and follow-up recommended to ensure resolution Severe atherosclerosis with ectatic aorta measuring up to 3.9 cm. Minimal pericardial calcification noted. Elevation of the left hemidiaphragm. Cirrhotic appearing liver. Gallstones. Small amount of ascites noted primarily on the perihepatic region.
[2019-04-17] MEDS: Albuterol/Ipratropium Neb 3 ML AERS HHN PRN (11:19)
[2019-04-17] MEDS: Apixaban 2.5 MG TABLET PO SCH ×2 (11:59→16:46)
[2019-04-17] MEDS: INSULIN LISPRO SLIDING SCALE 100 UNITS/ML UNIT SUBQ SCH ×3 (12:34→20:57)
[2019-04-17] MEDS: Pantoprazole 40 mg EC Tab PO SCH (16:48)
[2019-04-17] MEDS: methylPREDNISolone SS 40 mg Vial IV SCH (17:07)
[2019-04-17] MEDS: Budesonide 0.5 Mg/2 mL Ud HHN SCH (18:46)
--- NOTE | 2019-04-17 21:10 | Progress Notes ---
DATE: 04/17/2019 SUBJECTIVE: Chart reviewed and the patient interviewed. Also discussed the patient's condition with the staff and reviewed records and labs. The patient remains depressed and anxious, but affect is brighter and the patient is not as agitated as before. The only time, the patient has been yelling and screaming only when he needs the staff helping him with his ADLs. He also is still resisting care at times. Otherwise, the patient is compliant with taking his medications with no side effects of medications. TREATMENT PLAN: We will continue Risperdal in a dose of 0.75 mg twice a day and also we will continue Depakote 250 mg twice a day. Also, we will get Depakote blood level and we will continue to follow up. [facility]# [id number]
--- NOTE | 2019-04-17 22:36 | Consultation ---
DATE OF CONSULTATION: 04/17/2019 PULMONARY CONSULTATION REASON FOR CONSULTATION: Shortness of breath. CONSULT NOTE: This is a 68-year-old gentleman who lives in a convalescent home underlying with Dr. Rollins. The patient has a background history of psychosis as well as a history of shortness of breath on and off, and the patient was brought in up here because of possibly incontinence of urine, was started having more shortness of breath. Subsequently, the patient was admitted and I was asked to see this patient for further care and necessary treatment. The patient complains of dyspnea on exertion, complains of some wheezing, complains of no chest pain, denied of any fever, occasionally swelling of the legs, but otherwise unremarkable. Denies of any post ____ breathing and denies of any other related symptomatology, has lost some weight, but could not quantify it and denies of any fever or chills prior to coming to the hospital. PAST MEDICAL HISTORY: History of COPD, also history of psychosis. 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 PHYSICAL EXAMINATION: GENERAL: This is an elderly looking gentleman, awake, alert, oriented, mildly tachypneic, in no respiratory distress, etc. VITAL SIGNS: The patient's recorded vitals: Temperature is 99.3, blood pressure 140/52, respirations in low 20s, oxygen saturation in mid 90s on supplemental oxygen. HEENT: Head is essentially unremarkable. Pupils appear to be equal and reactive to light. Conjunctivae slightly pallor. Oral cavity shows edentulous with small oropharyngeal opening. NECK: No nodes in the neck could be palpated. CHEST: Shows slightly dorsal kyphosis. On auscultation, there are scattered wheezing and rales bilaterally. LABORATORY DATA: The patient's other laboratory studies are essentially unremarkable. The patient's CT of the chest shows interstitial changes, practically involving whole of the lungs with the area of ____, some nodules, some conglomerate interstitial changes in the left upper lobe with some nodules on the right mid lung around the minor fissure. ASSESSMENT: The patient has bilateral interstitial pneumonitis, appears to be chronic history of a electric spot welder in the [employer] for many years. PLANS AND SUGGESTIONS: We will go ahead and get a basic culture. We will go ahead and get aggressive respiratory care, inhalation treatment, and will discuss with Dr. Rollins if he had had previous chest x-ray and see what those readings are. In the meantime, we will get some serological studies, TB Gold QuantiFERON and some sputum studies and some vasculitis workup and see how he does and go from there. JOB# [id number]
--- NOTE | 2019-04-17 23:22 | Progress Notes ---
DATE: SUBJECTIVE: Chart was reviewed and the patient interviewed. Also discussed the patient's condition with the staff and I have reviewed the records and labs. The patient is still in a depressed mood since he was transferred from the [facility], the medical floor, for medical reasons. He is still feeling hopeless and helpless. Also, interacting minimally with others. Otherwise, the patient is compliant with taking his medications. ASSESSMENT: The patient is still anxious and still in a depressed mood and needs close monitoring. Also, it seems to be pleasantly confused. [facility]# [id number]
[2019-04-18] MEDS: methylPREDNISolone SS 40 mg Vial IV SCH ×5 (00:14→17:45)
[2019-04-18] MEDS: NITROGLYCERIN OINT 2% 1 INCH PACKET TP SCH ×5 (00:17→17:44)
[2019-04-18] MEDS: Albuterol/Ipratropium Neb 3 ML AERS HHN SCH ×5 (00:51→19:13)
[2019-04-18] MEDS: Budesonide 0.5 Mg/2 mL Ud HHN SCH ×2 (07:18→19:13)
[2019-04-18] MEDS: Apixaban 2.5 MG TABLET PO SCH ×2 (08:22→17:16)
[2019-04-18] MEDS: Aspirin 81mg Chewable Tab PO SCH (08:23)
[2019-04-18] MEDS: INSULIN LISPRO SLIDING SCALE 100 UNITS/ML UNIT SUBQ SCH ×4 (08:24→20:42)
[2019-04-18] MEDS: Pantoprazole 40 mg EC Tab PO SCH (08:24)
--- NOTE | 2019-04-18 08:36 | Progress Notes ---
DATE: 04/18/2019 PSYCHIATRIC PROGRESS NOTE SUBJECTIVE: Chart reviewed and the patient interviewed. Also discussed the patient's condition with the staff and reviewed records and labs. The patient still has periods of an anxiety, but easier to redirect him and seems to be calmer. He also is interacting slightly more. The patient does not want to be bothered when he is asleep and he gets more anxious when staff wakes him up for vital signs or lab work. Otherwise, the patient is easy to follow directions and more cooperative. ASSESSMENT: The patient seems to be less irritable and less agitated. TREATMENT PLAN: It was planned from [facility] that the patient will go to [facility] and they accepted the patient there since he cannot return to [facility]. We will continue current medications and the treatment with plan to discharge the patient to [facility] when medically cleared. JOB# [id number]
[2019-04-18] MEDS ORDERED: INSULIN DETEMIR 42 UNIT SQ SCH (09:00)
[2019-04-18] MEDS: Hydrocodone/APAP 10 mg/325 mg Tab PO PRN (19:41)
--- NOTE | 2019-04-18 20:02 | Progress Notes ---
DATE: 04/18/2019 IDENTIFICATION: A 68-year-old male. SUBJECTIVE: The patient seen and examined. The patient is lying in the bed. The patient still has a cough, congestion and shortness of breath, though according to him, he feels a little better. The patient denies any fever or chills. PHYSICAL EXAMINATION: VITAL SIGNS: On today's exam, temperature is 98, pulse is 78, respiratory rate is 18, blood pressure 124/55. HEENT: Unremarkable. Congested oropharynx. NECK: Supple, no JVD. HEART: Regular. CHEST AND LUNGS: Equal in expansion with expiratory wheezing throughout. ABDOMEN: Soft, no guarding, no rigidity. Liver, spleen not palpable. No palpable mass. EXTREMITIES: No edema. AVAILABLE DIAGNOSTIC DATA: CT scan of the chest remarkable for bilateral infiltrate, more on the right than left. CLINICAL IMPRESSIONS: 1. Acute respiratory failure. 2. Bilateral pneumonia. 3. Congestive heart failure. 4. Diabetes mellitus. 5. Chronic pancreatitis. 6. Degenerative joint disease. 7. Psychotic disorder. 8. Cirrhosis of liver. 9. History of splenectomy. 10. Diabetes mellitus with elevated blood sugar. 11. Debility. PLAN: 1. Continue provide oxygen. 2. Nebulizer treatment. 3. IV steroid. 4. IV antibiotic. 5. Pulmonary toilet. 6. IV Lasix. 7. Beta zhou. 8. ARB. 9. General nursing care. 10. Cardiac monitoring. 11. Follow lab 12. Follow consult recommendation. 13. Care plan reviewed and discussed with staff. JOB# [id number]
--- NOTE | 2019-04-18 23:45 | Progress Notes ---
DATE: 04/18/2019 PULMONARY PROGRESS NOTE PROBLEM LIST: Bilateral interstitial pneumonitis appears to be chronic with some nodular density, underlying possibly chronic obstructive pulmonary disease. SYMPTOMS: The patient is feeling much better since he came in. No much coughing, complaints from room being too hot. PHYSICAL EXAMINATION: VITAL SIGNS: Pulse is in 70s, BP is 130/47, and saturation is 98 on 2 liters per minute. NECK: Veins not visualized. CHEST: Shows occasional rales with diminished air entry. HEART: Regular. ABDOMEN: Soft, nontender. EXTREMITIES: Shows no peripheral edema. LABORATORY DATA: The patient's other laboratory studies as well as other diagnoses, which was ordered and is pending. In the meantime, the patient's lab test shows WBC 3.4, hemoglobin 8.1 and patient's blood chemistry is essentially unremarkable. ASSESSMENT: The patient has probably acute on chronic respiratory failure, welding for a long time in [employer], suspect asbestosis as well as lung associated it with underlying, possibly chronic obstructive pulmonary disease and possibly cirrhosis of liver. The patient clinically appears to be stable and unchanged. PLANS AND SUGGESTIONS: We will go ahead and continue current laboratory studies, etc. Await for it including sed rate, TB Gold QuantiFERON including vasculitis studies, etc. We will see how he does in the next day or two and we will discuss with Dr. Rollins. JOB# [id number]
[2019-04-19] MEDS: Albuterol/Ipratropium Neb 3 ML AERS HHN PRN ×2 (00:11→04:37)
[2019-04-19] MEDS: methylPREDNISolone SS 40 mg Vial IV SCH ×4 (00:26→17:05)
[2019-04-19] MEDS: NITROGLYCERIN OINT 2% 1 INCH PACKET TP SCH ×4 (00:28→17:04)
[2019-04-19] MEDS: Hydrocodone/APAP 10 mg/325 mg Tab PO PRN (04:22)
[2019-04-19] MEDS: Pantoprazole 40 mg EC Tab PO SCH (06:41)
[2019-04-19] MEDS: Budesonide 0.5 Mg/2 mL Ud HHN SCH ×2 (06:59→19:34)
[2019-04-19] MEDS: Albuterol/Ipratropium Neb 3 ML AERS HHN SCH ×4 (07:00→19:34)
[2019-04-19] MEDS: INSULIN LISPRO SLIDING SCALE 100 UNITS/ML UNIT SUBQ SCH ×4 (07:16→21:15)
[2019-04-19 08:07] LABS: T3 FREE 2.5 pg/mL (2.0-4.4); T4 FREE 1.33 ng/dL (0.82-1.77)
[2019-04-19] MEDS: Aspirin 81mg Chewable Tab PO SCH (08:57)
[2019-04-19] MEDS: Apixaban 2.5 MG TABLET PO SCH ×2 (08:57→16:52)
[2019-04-19] MEDS ORDERED: Insulin Glargine 100 units/ml 10ml Vial SUBQ SCH (09:00)
[2019-04-19] MEDS ORDERED: Hydrocodone/APAP 10 mg/325 mg Tab PO PRN (10:13)
--- NOTE | 2019-04-19 20:18 | Progress Notes ---
DATE: SUBJECTIVE: Chart was reviewed and the patient interviewed and discussed the patient's condition with the staff and reviewed records and labs. The patient said "you must to be doing something right." The patient said that he feels better, but staff reports that he walked in the middle of the night, anxious and irritable and asking for [place]. After the patient took the [place], the patient was calmer. The patient currently is calm and cooperative and compliant with taking his medications. ASSESSMENT: The patient is less agitated. TREATMENT PLAN: Continue to monitor behavior and condition closely. Also, continue working on behavioral modification. Also, [facility] seems to have accepted the patient when medically stable. [facility]# [id number]
--- NOTE | 2019-04-19 21:15 | Progress Notes ---
DATE: 04/19/2019 IDENTIFICATION DATA: The patient is a 68-year-old male. SUBJECTIVE: The patient seen and examined. The patient is lying in the bed. The patient still has a cough, congestion, shortness of breath. The patient has been seen by sole rougher and extensive workup has been ordered for interstitial lung disease including tuberculosis as well. The patient denies any fever or chills, asking for more pain medications. PHYSICAL EXAMINATION: VITAL SIGNS: Temperature 97.6, pulse is 80, respiratory rate 18, blood pressure 109/60. HEENT: Poor dentition. NECK: Supple, no JVD. HEART: Regular. LUNGS: Extensive wheezing throughout noted. ABDOMEN: Distended, palpable ascites noted. Bowel sounds are present. EXTREMITIES: No edema. NEUROLOGIC: Alert, awake, follows command. Decreased power throughout the upper and lower extremity. CLINICAL IMPRESSION: 1. Acute respiratory failure. 2. Bilateral pneumonia. 3. Ascites. 4. Cirrhosis of liver. 5. Diabetes mellitus with elevated blood sugar. 6. Hypertension. 7. Hyperlipidemia. 8. Seizure disorder. 9. Psychotic disorder. 10. Degenerative joint disease. 11. Debility. PLAN: Considering patient has multiple active medical problems going on and he is not medically stable to be downgraded to lower level of care, we will have LTAC evaluation for now. Meanwhile, we will increase the patient's Lantus insulin to 48 units daily along with monitoring the blood sugar and continue other medication as the patient was receiving. Continue to provide oxygen with nebulizer treatment, pulmonary toilet, Pulmonary followup, general nursing care, cardiac monitoring as well physical therapy as well. The patient may require a diagnostic and therapeutic paracentesis as well. Treatment plan has been discussed with the patient's assigned nurse and major case detective. JOB# [id number]
[2019-04-20 06:06] LABS: DIL RUSSELL VIPER VENOM TIME 79.1 sec (0.0-47.0); DRVVT MIX 46.7 sec (0.0-47.0); HEXAGONAL PHASE PHOS. 19 sec (0-11)
[2019-04-20] MEDS ORDERED: Insulin Glargine 100 units/ml 10ml Vial SUBQ SCH (09:00)
--- NOTE | 2019-04-21 17:32 | Discharge Summary ---
DATE OF DISCHARGE: 04/19/2019 PRINCIPAL DIAGNOSES: 1. Acute respiratory failure. 2. Bilateral pneumonia. 3. Congestive heart failure. 4. Hypertension. 5. Cirrhosis of liver. 6. Chronic atrial fibrillation. 7. Degenerative joint disease. 8. Psychotic disorder. 9. Diabetes mellitus. 10. Debility. 11. Decline in self-care, mobility. 12. Pancytopenia. 13. Diabetic retinopathy and legal blindness. BRIEF STATEMENT FOR THE REASON FOR ADMISSION: A 68-year-old male transferred from Gerops[facility] Unit to telemetry unit after the patient was noted to have respiratory distress with altered mental status. Please refer to my medical H and P for further information. HOSPITAL COURSE: The patient was admitted to telemetry unit. The patient was given oxygen, nebulizer treatment, IV antibiotic, IV steroids along with Cardiology and Pulmonary consultation. Appropriate home medication was reconciled along with diabetes management. The patient was also followed by the psychiatrist. The patient responded very well to therapy as expected. The patient did have some improvement according to rn acute care. The patient may have component of interstitial lung disease. In the view of his ongoing symptoms and complex medical problem, it was decided that the patient should be transferred to LTAC. The [facility] was [facility] and transferred to [facility] in stable condition where the patient will be followed by myself and community resource consultant. At the time of discharge, all of his medications were reconciled. JOB# [id number]
[2019-05-15 10:39] LABS: ANTI-CHROMATIN AUTO AB SEE REF. LAB REPORT
[2019-05-15 10:40] LABS: ANTI RIBOSOMAL P AB SEE REF LAB RESULTS
== END 2019-04-19 23:50 | DRG 871 ==
LOC: TELE 21:15
PROVIDERS: ADMIT Internal Medicine; ATTEND Internal Medicine
DX: A41.9 Sepsis, unspecified organism (principal); J18.9 Pneumonia, unspecified organism; J96.00 Acute respiratory failure, unspecified whether with hypoxia or hypercapnia; K86.1 Other chronic pancreatitis; R18.8 Other ascites; D61.818 Other pancytopenia; J84.89 Other specified interstitial pulmonary diseases; I50.9 Heart failure, unspecified; J44.9 Chronic obstructive pulmonary disease, unspecified; K74.60 Unspecified cirrhosis of liver; F03.90 Unspecified dementia, unspecified severity, without behavioral disturbance, psychotic disturbance, mood disturbance, and anxiety; G40.909 Epilepsy, unspecified, not intractable, without status epilepticus; H40.9 Unspecified glaucoma; M19.90 Unspecified osteoarthritis, unspecified site; E78.5 Hyperlipidemia, unspecified; F29 Unspecified psychosis not due to a substance or known physiological condition; I11.0 Hypertensive heart disease with heart failure; I48.2 Chronic atrial fibrillation; H54.8 Legal blindness, as defined in USA; E11.319 Type 2 diabetes mellitus with unspecified diabetic retinopathy without macular edema
CPT/HCPCS: 36415-UA; 36600-90; 71250-TC; 80053-TC; 82948-90; 83520-90; 83880-TC; 84439-90; 84479-90; 84484-TC; 85007-TC; 85025-TC; 85613; 85613-90; 85730-90; 86021-90; 86147-90; 86235-90; 86480-90; 87070; 93005; 94640; 94760; J1815; J1940; J2543; J2920; J7030; X3401; Z7610